=== PATIENT | male | born 1970 | race Hispanic/Latino ===

== ENCOUNTER 2016-10-06 08:30 | Outpatient (CLI) | payer BC ==
[2016-10-06] MEDS ORDERED: PROVENTIL IH ONE (09:14)
--- NOTE | 2016-10-06 09:39 | XRay Report ---
CHEST 2 VIEWS INDICATION: Cough, bronchospasm. COMPARISON: None similar at this institution. FINDINGS: PA and lateral chest radiographs demonstrate extensive diffuse bilateral pulmonary infiltrates, least involving the right upper lung zone. Normal cardiomediastinal silhouette. No pleural effusions or CHF. Intact bones. CONCLUSION: Extensive bilateral pulmonary infiltrates, presumed chronic, as described. Please also correlate clinically and with prior chest imaging, if available. Thank you for the opportunity to participate in this patient's care.
--- NOTE | 2016-10-07 02:37 | Pulmonary Function Test ---
FVC of 5.79 L or 87% of predicted. FEV1 of 4.32 L or 83% of predicted with a ratio of 75%. F25/75 was 3.36 L per second or 74% of predicted. MVV was 2.08 liters per minute or 111% of predicted. LUNG VOLUMES: Total lung capacity was 9.22 L or 107% of predicted. Residual volume was 3.57 liters or 157% of predicted with full vital capacity of 85%. DLCO 32.66 mL per minute per mmHg or 75% of predicted, RAW of 46%. INTERPRETATION: The patient has evidence of mild obstructive ventilatory defect and there is evidence of air trapping, mild hyperinflation and not significant loss of function alveolar unit. Clinical correlation is suggested. JOB# [id number] VICENTA/RITU
== END 2016-10-06 08:31 | disposition home or self-care (01) ==
LOC: PF 08:30
PROVIDERS: ATTEND Internal Medicine
DX: J98.01 Acute bronchospasm (principal); R91.8 Other nonspecific abnormal finding of lung field
CPT/HCPCS: 71020; 94010; 94726; 94729

== ENCOUNTER 2016-10-07 08:27 | Inpatient (IN) | payer BC ==
--- NOTE | 2016-10-07 09:25 | Emergency Department Report ---
HPI - General Chief Complaint: Dyspnea/Respdistress Time Seen by Provider: 10/07/16 08:44 - HPI HPI: This is a 46-year-old male presents to the emergency department, sent in by his primary care physician Dr. Hanson, secondary to an abnormal chest x- ray that was done yesterday. The patient has been having a 4 month history of intermittent bronchitis-like symptoms with mixed dry and productive cough. He is tried breathing treatments, steroids but has never been on any antibiotics. Recently he has been doing some pulmonary function testing and pulmonary exercises and that seems to exacerbate his chest discomfort causing some inflammation or as the patient says "makes my chest feels like it's on fire." He was finally sent for a chest x-ray yesterday and the results got back to his PCP that showed extensive infiltrates concerning in the upper lobes. The patient denies any past medical history but also with about 20 years without seeing a regular physician. He denies any recent travel or sick contacts at home. He denies any known fevers. He denies tobacco or illicit drug use or abuse. ED Past Medical Hx - Past Medical History Previous Medical History?: No - Surgical History Past Surgical History?: No - Social History Smoking Status: Never Smoker Substance Use Type: None - Medications Home Medications: Home Medications Medication Instructions Recorded Confirmed Last Taken Type Bnrxy-Hipbrqz-Ynilqerp Tablet 1 tab PO DAILY 10/07/16 10/07/16 10/06/16 History ED Review of Systems ROS: Stated complaint: SOB/RETURN CALL Other details as noted in HPI Comment: All other systems reviewed and negative Constitutional: chills. denies: weakness Eyes: denies: eye pain, eye discharge, vision change ENT: denies: ear pain, throat pain Respiratory: cough, shortness of breath Cardiovascular: denies: palpitations, edema Gastrointestinal: denies: abdominal pain, nausea, diarrhea Genitourinary: denies: urgency, dysuria Musculoskeletal: denies: back pain, joint swelling, arthralgia Skin: denies: rash, lesions Neurological: denies: headache, weakness, paresthesias Physical Exam - Physical Exam Vital Signs: Vital Signs 10/07/16 10/07/16 10/07/16 08:31 08:43 08:45 Temperature 97.4 F L Pulse Rate 77 Respiratory 18 Rate Blood Pressure 138/98 138/81 O2 Sat by Pulse 96 98 97 Oximetry 08/22/17 08/22/17 08:59 09:00 Temperature Pulse Rate 67 Respiratory 14 11 L Rate Blood Pressure 130/87 O2 Sat by Pulse 96 97 Oximetry Physical Exam: GENERAL: The patient is well-developed well-nourished. HENT: Normocephalic. Atraumatic. Patient has moist mucous membranes. EYES: Extraocular motions are intact. Pupils equal reactive to light bilaterally. NECK: Supple. Trachea is midline. CHEST/LUNGS: There was a dry cough heard during examination. Mild rhonchi heard. No tachypnea or accessory muscle use. There is no respiratory distress noted. HEART/CARDIOVASCULAR: Regular. There is no tachycardia. There is no gallop rub or murmur. ABDOMEN: Abdomen is soft, nontender. Patient has normal bowel sounds. There is no abdominal distention. SKIN: Skin is warm and dry. NEURO: The patient is awake, alert, and oriented. The patient is cooperative. The patient has no focal neurologic deficits. The patient has normal speech. MUSCULOSKELETAL: There is no tenderness or deformity. There is no limitation range of motion. There is no evidence of acute injury. ED Course Vital Signs 10/07/16 10/07/16 10/07/16 08:31 08:43 08:45 Temperature 97.4 F L Pulse Rate 77 Respiratory 18 Rate Blood Pressure 138/98 138/81 O2 Sat by Pulse 96 98 97 Oximetry 10/07/16 10/07/16 08:59 09:00 Temperature Pulse Rate 67 Respiratory 14 11 L Rate Blood Pressure 130/87 O2 Sat by Pulse 96 97 Oximetry ED Medical Decision Making - Lab Data Result diagrams: 10/07/16 09:39 10/07/16 09:39 - Radiology Data Radiology results: report reviewed CT of the chest with IV contrast. History: Cough and dyspnea. Findings: There is an irregular soft tissue mass lesion in the left upper lobe anteriorly measuring 2 cm in diameter. This is contiguous with anterior bulky mediastinal adenopathy. Markedly enlarged nodes are seen in the pretracheal and precarinal region, the AP window, and subcarinal region. Extensive bilateral coarse interstitial infiltrates are present with coalescence of many of the interstitial densities. Small additional pulmonary masses cannot be excluded. There is bilateral hilar adenopathy. There is no pleural fluid. Images which include a portion of the upper abdomen demonstrate numerous ill-defined hypodensities throughout the spleen. There also diffuse innumerable hypodensities within the liver. The liver and spleen are incompletely evaluated on this study of the chest. Impression: Left upper lobe mass with bulky mediastinal and hilar adenopathy, highly suspicious for neoplastic process. There is coexistent extensive bilateral interstitial fibrosis/infiltrates with possible additional pulmonary nodules. 2. Multiple splenic hypodensities are suspicious for metastatic disease. Multiple small hepatic hypodensities are also somewhat suspicious. CT of the abdomen and pelvis is recommended for further evaluation. - Medical Decision Making 46-year-old male presents with a 4 month history of persistent cough and some pleuritic chest and/or long burning sensation for the past day or so. He had an abnormal chest x-ray yesterday which is what prompted him to be sent in. Labs are mostly unremarkable. However CT of the chest with IV contrast shows concern for neoplastic lung mass with possible metastasis to the liver. It was also describes having some interstitial infiltrates. He was placed on a dose of Levaquin and blood cultures were sent. He will be admitted to the hospital for further evaluation and treatment has been accepted for admission by the hospitalist, Dr. Goldberg. - Differential Diagnosis malignancy, TB, bronchitis, pneumonia Critical Care Time: No Critical care attestation.: If time is entered above; I have spent that time in minutes in the direct care of this critically ill patient, excluding procedure time. ED Disposition Clinical Impression: Burning chest pain, Lung mass, Bronchitis Disposition: OP ADMIT IP TO THIS HOSP Is pt being admited?: Yes Condition: Stable Time of Disposition: 13:47
[2016-10-07 10:09] LABS: Basophils % (Auto) 1.1 % (0.0-1.8); Hematocrit 37.2 % (35.5-45.6); Hemoglobin 12.7 gm/dl (11.8-15.2); Mean Corpuscular HGB Conc 34 % (32-34); Mean Corpuscular Hemoglobin 28 pg (28-32); Mean Corpuscular Volume 83 fl (84-94); Platelet Count 168 K/mm3 (140-440); Red Cell Distribution Width 14.4 % (13.2-15.2); White Blood Count 6.5 K/mm3 (4.5-11.0)
[2016-10-07 10:17] LABS: BUN/Creatinine Ratio 12.14; Chloride 104.6 mmol/L (98-107); Potassium 3.4 mmol/L (3.6-5.0)
--- NOTE | 2016-10-07 11:34 | Cat Scan Report ---
CT of the chest with IV contrast. History: Cough and dyspnea. Findings: There is an irregular soft tissue mass lesion in the left upper lobe anteriorly measuring 2 cm in diameter. This is contiguous with anterior bulky mediastinal adenopathy. Markedly enlarged nodes are seen in the pretracheal and precarinal region, the AP window, and subcarinal region. Extensive bilateral coarse interstitial infiltrates are present with coalescence of many of the interstitial densities. Small additional pulmonary masses cannot be excluded. There is bilateral hilar adenopathy. There is no pleural fluid. Images which include a portion of the upper abdomen demonstrate numerous ill-defined hypodensities throughout the spleen. There also diffuse innumerable hypodensities within the liver. The liver and spleen are incompletely evaluated on this study of the chest. Impression: Left upper lobe mass with bulky mediastinal and hilar adenopathy, highly suspicious for neoplastic process. There is coexistent extensive bilateral interstitial fibrosis/infiltrates with possible additional pulmonary nodules. 2. Multiple splenic hypodensities are suspicious for metastatic disease. Multiple small hepatic hypodensities are also somewhat suspicious. CT of the abdomen and pelvis is recommended for further evaluation.
--- NOTE | 2016-10-07 12:28 | Admit Criteria Form ---
Admission Criteria Documentation: PULMONARY DISEASE GRG Clinical Indications for Admission to Inpatient Care ( Place 'X' for any and all applicable criteria): Hospital admission is needed for appropriate care of the patient because of 1 or more of the following(1)(2): [ ]I. Impending or actual respiratory arrest. See Respiratory Failure GRG guideline for severe respiratory disease and long-term mechanical ventilation patients. (3)(4) (5) [ ]II. Severe airflow or ventilation abnormalities (not responsive to emergency and observation care treatment as appropriate) as indicated by 1 or more of the following (6)(7)(8)(9) : [ ]a) PCO2 greater than 42 mm Hg (5.6 kPa) and pH less than 7.35 (new) [ ]b) Documented PCO2 increased more than 5 mm Hg (0.7 kPa) from disease baseline [ ]c) Airflow measurements[A] less than 60% of previous best or predicted (eg, peak expiratory flow rate less than 300 L/min) despite intensive emergent treatment(B) [ ]d) Required respiratory treatments that are performable only in acute inpatient setting [ ]III. Severe respiratory findings (not responsive to emergency and observation care treatment as appropriate) including 1 or more of the following(6)(9)(10): [ ]a) Respiratory distress as indicated by ALL of the following(6)(11): [ ]i) Patient with 1 or more of the following: [ ]1) Dyspnea (difficulty breathing) [ ]2) Tachypnea [ ]3) Abnormal breathing pattern (eg, chest retractions) [ ]4) Other evidence of difficulty breathing [ ]ii) Evidence of respiratory compromise indicated by 1 or more of the following: [ ]1) Hypoxemia [ ]2) Altered mental status [ ]3) Other evidence of respiratory compromise (eg, pulmonary edema on chest x-ray) [ ]b) Stridor [ ]c) Gross hemoptysis(12) [ ]d) Acute cyanosis [ ]IV. Chronic lung disease with severe deterioration (not responsive to emergency and observation care treatment as appropriate) as indicated by 1 or more of the following(7) (13): [ ]a) SaO2 5% below baseline in patient with chronic hypoxemia [ ]b) New requirement for supplemental oxygen to keep SaO2 at baseline or acceptable level [ ]c) Required supplemental oxygen performable only in acute inpatient setting [ ]d) Severe airflow or ventilation abnormalities [ ]e) Previouslymobile patient unable to walk between rooms [ ]f) Inability to eat or sleep due to dyspnea [ ]g) Altered mental status that is severe or persistent [ ]V. Empyema or lung abscess(14)(15) [ ]Vl. Severe atelectasis or lung collapse(16)(17) [ ]Kathya. Tuberculosis requiring inpatient treatment as indicated by 1 or more of the following(18)(19)(20)(21): [ ]a) Diagnosis suspected (eg, symptomatic patient from endemic area or in high-risk population, with abnormal chest imaging) and cannot be ruled out within observation care timeframe (ie, sputum analysis, nucleic acid amplification techniques not rapidly available or not diagnostic) [ ]b) Severely symptomatic patient (eg, Hypoxemia, Hemodynamic instability, Tachypnea) [ ]c) Jtmxp-gyyz-vgxmemntr infection suspected in newly diagnosed patient (eg, treatment regimen may require near-term adjustment) [ ]d) Newly diagnosed patient at high-risk of short-term deterioration (eg, HIV positive, frail, immunocompromised, chronic lung disease) [ ]e) High infectivity suspected (eg, laryngeal disease, cavitary pulmonary lesions, ongoing positivity of sputum) and 1 or more of the following: [ ]i) Unexposed household contacts at high risk (eg, immunocompromised, elderly, infants, chronic lung disease) [ ]ii) Patient unable or unwilling to avoid exposing others (eg, significant psychiatric disease, substance abuse, developmental disability) [ ]f) Complication of tuberculosis requiring inpatient treatment (eg , constrictive pericarditis, tubercular meningitis) [ ]g) Hospitalization mandated by public health authority (eg, patient continually noncompliant with directly observed therapy) [ ]VIII. High-risk pulmonary infection as indicated by 1 or more of the following(22)(23)(24)(25): [ ]a) Temperature less than 95 degrees F (35 degrees C) or greater than 103.1 degrees F (39.5 degrees C) [ ]b) Hemodynamic instability [ ]c) Immunocompromised patient (eg, AIDS, post transplant, neutropenic)(26)(27) [ ]d) History of severe COPD(28) [ ]e) History of severely symptomatic congestive heart failure(29) [ ]f) Other high-risk comorbidity (eg, poorly controlled diabetes, cirrhosis, chronic renal insufficiency) [ ]g) Hypoxemia [ ]h) severe stridor (30) [ ]i) Outpatient, observation, or recovery facility therapy has failed, is not appropriate, or is not feasible. [ ]IX. Complications of tracheostomy that remains after emergency or observation level care(31)(32)(33)(34) [ ]X. Respiratory complications of organ transplant (eg, rejection, respiratory failure, respiratory infection)(27) [ ]XI. Severe pulmonary arterial hypertension or pulmonary vascular disease requiring inpatient care indicated by 1 or more of the following(35)(36)(37)(38): [ ]a) Initiation or change of vasodilators (IV, subcutaneous, or inhaled) or other vasoactive medications needed [ ]b) IV anticoagulation needed (eg, immediate anticoagulation necessary, alternatives not appropriate) [ ]c) Arterial or pulmonary artery catheter monitoring needed due to infusion or other treatment [ ]XII. Cystic fibrosis requiring inpatient care as indicated by 1 or more of the following(39)(40): [ ]a) Severe exacerbation that does not respond to intensified home therapy(41) [ ]b) Severe exacerbation with patient unable to perform prescribed treatments at home [ ]c) Pneumonia [ ]d) Pneumothorax(42) [ ]e) Atelectasis [ ]f) Hemoptysis(43) [ ]XIII. Bronchiectasis requiring inpatient care as indicated by 1 or more of the following(44)(45): [ ]a) Respiratory distress [ ]b) Severe exacerbation and outpatient or observation care therapy has failed, is not appropriate, or is not feasible. [ ]XIV. Sarcoidosis requiring inpatient care as indicated by 1 or more of the following(46)(47)(48): [ ]a) Respiratory distress [ ]b) Cardiac involvement with arrhythmia(49) [ ]c) Outpatient or observation care therapy has failed, is not appropriate, or is not feasible. [ ]XV. Intestitial lung disease requiring inpatient care as indicated by 1 or more of the following(50)(51): [ ]a) Respiratory distress [ ]b) Severe exacerbation and outpatient or observation care therapy has failed, is not appropriate, or is not feasible [ ]XVI. Allergic pneumonitis requiring inpatient care as indicated by 1 or more of the following(52): [ ]a) Respiratory distress [ ]b) Acute eosinophilic pneumonia [ ]c) [place] with cardiac involvement [ ]d) Outpatient or observation care therapy has failed, is not appropriate, or is not feasible [ ]XVIl. Severe right heart failure requiring inpatient care as indicated by 1 or more of the following(35)(53)(54): [ ]a) Respiratory distress [ ]b) Debilitating anasarca that remains after emergency or observation level care (eg, tissue [ ]c) breakdown with severe infection, inability to void due to edema) [C](41)(42)(43)(44) [ ]d) Hemodynamic instability [ ]e) Syncope [ ]f) Angina that requires inpatient care (eg, not treatable in emergency or observation level of care) [ ]g) Increasing organ failure (eg, liver congestion with significant and worsening or new elevation of transaminases) [ ]XVIll. Injury requiring inpatient care (medical) as indicated by 1 or more of the following(59)(60)(61) [ ]a) Significant inhalation injury (eg, smoke inhalation, other toxic inhalation)(62)(63)(64) [ ]b) Airway obstruction that remains or is unstable after emergency or observation level care(65)(66) [ ]c) Severe pain requiring acute inpatient management [ ]d) Lung contusion(67) [ ]e) Flail chest(68) [ ]f) Bronchial tree injury [ ]g) Air or fat emboli [ ]h) Other injury not treatable in emergency or observation level care (eg, hemothorax)(55) [ ]XlX. Pulmonary hemorrhage or significant hemoptysis(12)(43)(69) [ ]XXl. Complications of transplanted lung indicated by 1 or more of the following(70)(71) [ ]a) Acute graft rejection requiring inpatient management (eg, intravenous immunosuppression)(72)(73)(74) [ ]b) Failure of transplant lung as indicated by 1 or more of the following(75)(76): [ ]i) Anastomotic leak [ ]ii) Airway ischemia or necrosis [ ]iii) Airway fistula [ ]iv) Obstructing granulation tissue requiring intervention [ ]v) Bronchial stenosis or stricture requiring intervention [ ]vi) Tracheobronchomalacia requiring intervention [ ]vii) Severe airflow or ventilation abnormalities [ ]viii) Severe respiratory findings [ ]c) Infection requiring inpatient management (eg, Hemodynamic instability, need for intravenous antimicrobial treatment)(77)(78)(79)(80)(81)(82 [ ]d) Other complication of transplanted lung (eg, obliterative bronchiolitis, plastic bronchitis, thrombotic microangiopathy, constrictive pericarditis) requiring inpatient management(83)(84)(85)(86)(87) [ ]XXll. Inpatient palliative care needed.[D](88)(89)(90)(91) [X ]XXlll. Pulmonary Disease condition, symptom, or finding for which emergency and observation care have failed or are not considered appropriate. The original [facility] [employer] content created by [employer] has been revised. The portions of the content which have been revised are identified through the use of italic text or in bold, and [facility] has neither reviewed nor approved the modified material. All other unmodified content is copyright [facility] [employer] Please see references footnoted in the original [facility] [employer] edition 2017 Admission Criteria Met: Yes
[2016-10-07] MEDS ORDERED: LEVAQUIN 750MG/150ML 750 MG/150 ML BAG IV ONE (13:40)
[2016-10-07] MEDS: HEPARIN SUB-Q SCH ×2 (15:19→21:23)
[2016-10-08] MEDS: HEPARIN SUB-Q SCH ×3 (05:23→21:44)
--- NOTE | 2016-10-08 06:09 | Event Note ---
Date: 10/07/16 See H/p in reports Lung Ca with mets Malnutrition Lactose intolerance
[2016-10-08] MEDS ORDERED: ZOFRAN IV PRN (07:07)
[2016-10-08] MEDS ORDERED: DULCOLAX PR PRN (07:07)
[2016-10-08] MEDS ORDERED: TYLENOL PO PRN (07:07)
[2016-10-08 07:56] LABS: INR 1.1 (0.87-1.13); Partial Thromboplastin Time 37.1 Sec. (24.2-36.6)
--- NOTE | 2016-10-08 08:29 | History and Physical Report ---
CHIEF COMPLAINT: Cough and chest pain for 1 week. HISTORY OF PRESENT ILLNESS: A 46-year-old male with past medical history significant for lactulose intolerance, who has never seen a physician until last 1 week, comes in because of chest x-ray abnormalities and was referred by his primary care physician, Dr. Gloria. The patient has been having dry cough, nonproductive. Has tried inhalers with no relief. The patient has been some chest discomfort, but more on deep breathing and also coughing. The patient also has lost some weight recently. As per his primary care physician, the patient had extensive infiltrates on the chest x-ray for which he was referred to the ER for further evaluation. Did not see his PCP for the last 20 years. PAST MEDICAL HISTORY: Significant for lactulose intolerance. PAST SURGICAL HISTORY: None. SOCIAL HISTORY: Does not smoke. No alcohol, no recreational drugs. FAMILY HISTORY: Noncontributory. REVIEW OF SYSTEMS: GENERAL: Lost some weight recently. HEENT: No sore throat, no postnasal drip. NECK: No neck pain. CARDIOVASCULAR AND RESPIRATORY: Cough, shortness of breath present. Cough, nonproductive. Occasionally, mucoid sputum. Pleuritic chest pain present, more on breathing. GASTROINTESTINAL: No nausea, no vomiting, no diarrhea. Gets loose stools with lactulose products. GENITOURINARY: No dysuria, no flank pain. MUSCULOSKELETAL: No joint pains. No muscle pains. SKIN: No rashes. NEUROLOGIC: No syncope, no seizures. A 14-point review of systems was done. PHYSICAL EXAMINATION: GENERAL: On examination, middle-aged male, underweight, tall. VITAL SIGNS: Temperature is 97.4, pulse is 77, respirations are 18, blood pressure is 138/98. HEENT: Unremarkable. Pupils equal and reactive. NECK: Supple, no lymphadenopathy, no thyromegaly. LUNGS: Clear to auscultation and percussion. Occasional rhonchi present. CARDIOVASCULAR: S1, S2 heard. No gallop, no murmur, no rub. Apical impulse in left fifth intercostal space and midclavicular line. ABDOMEN: Soft and benign. No hepatosplenomegaly. No guarding, no rigidity. Hernial orifices are normal. EXTREMITIES: Good pedal pulses. No pedal edema. CENTRAL NERVOUS SYSTEM: Alert and oriented x 4, nonfocal exam. LABORATORY DATA: Significant for potassium of 3.4, otherwise labs are normal. Hemoglobin is 12.7, hematocrit is 37.2. Sodium is 144. CT of the chest shows multiple infiltrates especially mass lesion in the left upper lobe, measuring about 2 cm in diameter. Also, bulky mediastinal adenopathy, markedly enlarged nodes in the precarinal region. Extensive bilateral coarse interstitial infiltrates. Also, hypodensities suspicious for multiple metastatic disease in the liver and spleen. CT of the abdomen and pelvis recommended. ASSESSMENT AND PLAN: 1. Lung cancer with metastasis. Oncology consult was requested. The patient needs a tissue biopsy. Dr. Ham consulted. 2. Acute bronchitis. The patient to get DuoNeb and IV Levaquin. 3. Lactose intolerance. Lactose-free diet. 4. Malnutrition. HIV test was ordered to rule out possible HIV disease because of weight loss. 5. Deep venous thrombosis prophylaxis, Lovenox 40 mg subcutaneous daily. JOB# [id number] LUCY/RITU
[2016-10-08] MEDS: D5W/0.45% NACL/KCL 20 MEQ 20 MEQ/1,000 ML BAG IV SCH (08:30)
[2016-10-08 08:31] LABS: HIV-1 Antigen p24 Non React (Non React); HIVR-1/2 Ab Non React (Non React)
[2016-10-08] MEDS ORDERED: [UNRECOGNIZED DRUG - OTHER] PO SCH (10:00)
[2016-10-08] MEDS ORDERED: NACL ONE (12:45)
--- NOTE | 2016-10-08 13:44 | Hem/Onc Consultation ---
History of Present Illness - Reason for Consult Consult date: 10/08/16 Requesting physician: ANT SANCHEZ - History of Present Illness Young gentleman, runner developed cough around 6 months ago. Treated with broncho dilators and antibiotics but worsened. He had a CT done as outlined below and we are called. Symptoms are cough and dyspnea. Able to run one block only. Medications and Allergies Allergies Allergy/AdvReac Type Severity Reaction Status Date / Time cefaclor [From [facility]] Allergy Itching Unverified 10/06/16 08:31 Home Medications Medication Instructions Recorded Confirmed Last Taken Type Dfiwt-Goxvtew-Zqhfigag Tablet 1 tab PO DAILY 10/07/16 10/07/16 10/06/16 History Active Meds: Active Medications Acetaminophen (Tylenol) 650 mg PO Q4H PRN PRN Reason: Pain MILD(1-3)/Fever >100.5/CASTELLANOS Bisacodyl (Dulcolax) 10 mg CA QDAY PRN PRN Reason: Constipation unrelieved by [facility] Famotidine (Pepcid) 20 mg IV BID REAGAN Heparin Sodium (Porcine) (Heparin) 5,000 unit SUB-Q Q8HR REAGAN Last Admin: 10/08/16 05:23 Dose: 5,000 unit Hydromorphone HCl (Dilaudid) 0.5 mg IV Q3H PRN PRN Reason: Pain , Severe (7-10) Potassium Chloride/Dextrose/Sod Cl (D5w/0.45% Nacl/Kcl 20 Meq) 20 meq in 1,000 mls @ 75 mls/hr IV DIRECT REAGAN Last Admin: 10/08/16 08:30 Dose: 75 mls/hr Magnesium Hydroxide (Milk Of Magnesia) 30 ml PO Q4H PRN PRN Reason: Constipation Multivitamins/Minerals (Theragran-M Tab) 1 each PO QDAY REAGAN Ondansetron HCl (Zofran) 4 mg IV Q8H PRN PRN Reason: N/V unrelieved by Reglan Oxycodone/Acetaminophen (Percocet 5/325) 1 tab PO Q6H PRN PRN Reason: Pain, Moderate (4-6) Review of Systems All systems: negative (dyspnea and cough) Exam - Constitutional Vitals: Last Vital Signs Temp 98.6 F 10/08/16 07:35 Pulse 66 10/08/16 08:44 Resp 18 08/23/17 08:44 BP 122/79 10/08/16 07:35 Pulse Ox 100 10/08/16 07:35 General appearance: no acute distress Performance status: 0-fully active - EENT Eyes: PERRL ENT: hearing intact, clear oral mucosa Lymph node exam: negative cervical - Neck Neck: supple - Respiratory Respiratory effort: Positive: normal Respiratory: bilateral: CTA - Cardiovascular Rhythm: regular Extremities: no ischemia - Gastrointestinal General gastrointestinal: Present: soft Rectal Exam: deferred - Genitourinary Male genitourinary: Present: normal - Integumentary Integumentary: clear - Musculoskeletal Musculoskeletal: strength equal bilaterally - Neurologic Neurologic: CNII-XII intact - Psychiatric Psychiatric: appropriate mood/affect - Allied health notes Allied health notes reviewed: nursing Results - Labs lab Results: Laboratory Results - last 24 hr 10/08/16 10/08/16 07:21 07:27 PT 14.8 INR 1.10 APTT 37.1 H HIV 1&2 Antibody Rapid Non react HIV P24 Antigen Non react - Imaging and cardiology CT scan - chest: report reviewed, image reviewed Assessment and Plan - Patient Problems (1) Lung mass Current Visit: Yes Status: Acute Plan to address problem: Scan reviewed personally reviewed and with Dr Gonzales. Also showed scans to parents. Plan is biopsy. Outpatient follow up recommended. 45v minutes spent in patient care.
[2016-10-08] MEDS: PEPCID IV SCH ×2 (13:58→21:50)
[2016-10-08] MEDS: THERAGRAN-M Tab PO SCH (13:58)
--- NOTE | 2016-10-08 14:56 | Cat Scan Report ---
CT ABDOMEN AND PELVIS WITH CONTRAST INDICATION: Evaluate for liver metastases. COMPARISON: Yesterday's chest CT. FINDINGS: Abdomen and pelvis CT performed following oral contrast and intravenous administration of 100 cc of Omnipaque 300. LUNG BASES: Diffuse bibasilar reticulonodular pulmonary infiltrates, at places somewhat coalescent. No pleural effusions. Anterior 6 mm AP pericardial thickening or fluid, axial image 38, series 2. Normal heart size. Nonspecific distal esophageal wall prominence/thickening, not excluded for gastroesophageal reflux and/or hiatal hernia, amongst others. ABDOMEN: Innumerable splenic hypodense lesions noted throughout with the largest confluent area superiorly measuring approximately 11 x 7 cm, axial image 61, series 2. Spleen enlarged 18.5 cm craniocaudal. Liver estimated at 19 cm craniocaudal and is suspicious for innumerable tiny hypodense lesions individually measuring 3-4 mm and greatest superiorly as on axial images 37-85, series 2, amongst others. No biliary dilatation. Patent veins. Pancreatic body somewhat prominent/blunted with tail not well seen, possibly displaced due to the enlarged spleen. Otherwise unremarkable pancreas, adrenals, aorta, IVC and non-hydronephrotic kidneys. Left renal cortical flattening anterolaterally related to splenomegaly may also be noted. Numerous retroperitoneal, robyn hepatis and gastrohepatic lymph nodes with the largest confluent left para-aortic lymphadenopathy approximately 2.5 x 1.5 cm, axial image 168, series 2. No ascites. Opacified small bowel nonobstructive. Mild to moderate colonic stool/possible constipation. PELVIS: Small prostatic calcifications. Few pelvic phleboliths. Rectosigmoid stool. Grossly unremarkable opacified urinary bladder. No free fluid or significant adenopathy. Mild lower thoracic and lower lumbar degenerative spurring. CONCLUSION: 1. Splenomegaly with innumerable hypodense lesions. 2. Prominent/slightly enlarged liver with tiny numerous hypodense lesions superiorly also suspected. 3. Upper abdominal mesenteric and retroperitoneal lymphadenopathy. 4. Bilateral nodular pulmonary infiltrates. 5. Few other incidental findings, including possible constipation. Differential considerations in light of above findings may include lymphoma, sarcoidosis or metastatic disease, amongst others. Thank you for the opportunity to participate in this patient's care.
--- NOTE | 2016-10-08 19:39 | Progress Note ---
Assessment and Plan Assessment and plan: 46 yo male with no medical problems developed persistent cough approximately 4 months ago and later associated fatigue/generalized weakness 1. Suspected metastatic malignancy with lung primary CT chest showing DASH mass with mediastinal and hilar adenopathy and CT abdomen/ pelvis showing numerous small hypodensities in spleen and liver Scheduled for lung biopsy by IR Oncology consulted and recommended outpatient follow-up after biopsy performed 2. Hypercalcemia Secondary to dehydration versus paraneoplastic syndrome Give IV fluids and recheck in a.m. Also obtain total protein, AP, LFTs 3. Acute kidney injury Possible secondary to vasomotor nephropathy Give IV fluids Monitor BUN/creatinine and electrolytes 4. DVT prophylaxis Lovenox indicated given malignancy, but currently on heparin subcutaneous until renal function recovers History Interval history: Complains of fatigue and dry cough Hospitalist Physical - Constitutional Vitals: Temp Pulse Resp BP Pulse Ox 98.2 F 65 16 131/77 95 10/08/16 14:35 10/08/16 14:35 10/08/16 14:35 10/08/16 14:35 10/08/16 14:35 General appearance: Present: no acute distress - EENT Eyes: Present: PERRL, EOM intact. Absent: scleral icterus, conjunctival injection - Neck Neck: Present: supple, normal ROM. Absent: masses or JVD - Respiratory Respiratory effort: normal Respiratory: bilateral: CTA, negative: rhonchi, wheezing - Cardiovascular Rhythm: regular Heart Sounds: Present: S1 & S2. Absent: systolic murmur - Extremities Extremities: no ischemia, No edema - Abdominal General gastrointestinal: soft, non-tender, non-distended, normal bowel sounds, splenomegaly - Integumentary Integumentary: Present: warm, dry. Absent: jaundice, rash - Psychiatric Psychiatric: appropriate mood/affect, intact judgment & insight, cooperative - Neurologic Neurologic: CNII-XII intact, no focal deficits Results - Labs CBC & Chem 7: 10/07/16 09:39 10/07/16 09:39 Labs: Laboratory Last Values WBC 6.5 K/mm3 (4.5-11.0) 10/07/16 09:39 RBC 4.50 M/mm3 (3.65-5.03) 10/07/16 09:39 Hgb 12.7 gm/dl (11.8-15.2) 10/07/16 09:39 Hct 37.2 % (35.5-45.6) 10/07/16 09:39 MCV 83 fl (84-94) L 10/07/16 09:39 MCH 28 pg (28-32) 10/07/16 09:39 MCHC 34 % (32-34) 10/07/16 09:39 RDW 14.4 % (13.2-15.2) 10/07/16 09:39 Plt Count 168 K/mm3 (140-440) 10/07/16 09:39 Lymph % (Auto) 14.1 % (13.4-35.0) 10/07/16 09:39 [place] % (Auto) 15.6 % (0.0-7.3) H 10/07/16 09:39 Eos % (Auto) 6.0 % (0.0-4.3) H 10/07/16 09:39 Baso % (Auto) 1.1 % (0.0-1.8) 10/07/16 09:39 Lymph # 0.9 K/mm3 (1.2-5.4) L 10/07/16 09:39 [place] # 1.0 K/mm3 (0.0-0.8) H 10/07/16 09:39 Eos # 0.4 K/mm3 (0.0-0.4) 10/07/16 09:39 Baso # 0.1 K/mm3 (0.0-0.1) 10/07/16 09:39 Seg Neutrophils % 63.2 % (40.0-70.0) 10/07/16 09:39 Seg Neutrophils # 4.1 K/mm3 (1.8-7.7) 10/07/16 09:39 PT 14.8 Sec. (12.2-14.9) 10/08/16 07:27 INR 1.10 (0.87-1.13) 10/08/16 07:27 APTT 37.1 Sec. (24.2-36.6) H 10/08/16 07:27 Sodium 144 mmol/L (137-145) 10/07/16 09:39 Potassium 3.4 mmol/L (3.6-5.0) L 10/07/16 09:39 Chloride 104.6 mmol/L (98-107) 10/07/16 09:39 Carbon Dioxide 26 mmol/L (22-30) 10/07/16 09:39 Anion Gap 17 mmol/L 10/07/16 09:39 BUN 17 mg/dL (9-20) 10/07/16 09:39 Creatinine 1.4 mg/dL (0.8-1.5) 10/07/16 09:39 Estimated GFR 55 ml/min 10/07/16 09:39 BUN/Creatinine Ratio 12.14 % 10/07/16 09:39 Glucose 97 mg/dL (75-100) 10/07/16 09:39 Lactic Acid 1.60 mmol/L (0.7-2.0) 10/07/16 09:39 Calcium 12.0 mg/dL (8.4-10.2) H 10/07/16 09:39 HIV 1&2 Antibody Rapid Non react (Non React) 10/08/16 07:21 HIV P24 Antigen Non react (Non React) 10/08/16 07:21 - Imaging and Cardiology CT scan - abdomen: report reviewed CT scan - chest: report reviewed
[2016-10-09] MEDS: D5W/0.45% NACL/KCL 20 MEQ 20 MEQ/1,000 ML BAG IV SCH ×2 (02:25→20:35)
[2016-10-09 05:04] LABS: Hematocrit 37.8 % (35.5-45.6); Hemoglobin 12.6 gm/dl (11.8-15.2); Mean Corpuscular HGB Conc 34 % (32-34); Mean Corpuscular Hemoglobin 28 pg (28-32); Mean Corpuscular Volume 83 fl (84-94); Platelet Count 159 K/mm3 (140-440); Red Blood Count 4.55 M/mm3 (3.65-5.03); Red Cell Distribution Width 14.4 % (13.2-15.2); White Blood Count 4.1 K/mm3 (4.5-11.0)
[2016-10-09 05:07] LABS: Albumin/Globulin Ratio 1.4 %; BUN/Creatinine Ratio 11.53; Bilirubin,Total 0.5 mg/dL (0.1-1.2); Calcium 11.5 mg/dL (8.4-10.2); Chloride 104.4 mmol/L (98-107); Phosphorous 3.3 mg/dL (2.5-4.5); Potassium 4.9 mmol/L (3.6-5.0); Total Protein 6.8 g/dL (6.3-8.2)
[2016-10-09 05:13] LABS: INR 1.09 (0.87-1.13)
[2016-10-09 05:14] LABS: Partial Thromboplastin Time 32.9 Sec. (24.2-36.6)
[2016-10-09] MEDS: HEPARIN SUB-Q SCH ×3 (05:14→22:17)
[2016-10-09 06:46] LABS: Anisocytosis 1+; Basophils % (Manual) 0 % (0.0-1.8); Blastocytes % (Manual) 0 %; Large Platelets Few
[2016-10-09 06:47] LABS: Diff Status Complete; Hypochromasia Rare
[2016-10-09] MEDS ORDERED: VERSED IV ONE (09:34)
[2016-10-09] MEDS ORDERED: SUBLIMAZE IV ONE ×2 (09:34→16:54)
[2016-10-09] MEDS ORDERED: NACL 0.9% 500 ML 0 ML ONE (09:40)
[2016-10-09] MEDS: THERAGRAN-M Tab PO SCH (10:00)
--- NOTE | 2016-10-09 10:56 | Procedure Note ---
Date of procedure: 10/09/16 Pre-op diagnosis: Lung lesions Post-op diagnosis: same Procedure: Bx of DASH mass Anesthesia: local Surgeon: VIJAYA OSUNA Estimated blood loss: none Specimen disposition: to lab Condition: stable Disposition: floor
[2016-10-09] MEDS: PEPCID IV SCH ×2 (11:25→22:17)
--- NOTE | 2016-10-09 12:48 | Cat Scan Report ---
CT guided biopsy of left lung mass. Procedure: The patient's skin surface overlying the left thorax was prepped and draped using sterile technique. Local anesthetic was injected in the skin. Using CT guidance, a 19-gauge sheath needle was advanced into the mass in the left upper lobe anteriorly. 3 passes were made using a 20-gauge biopsy gun. Adequate tissue cores were obtained. No definite malignant cells were seen on the touch prep slides. Intravenous conscious sedation was used. And cardiorespiratory monitoring was performed by the outpatient procedure nurse was 30 minutes Intraservice time, supervised by me. The patient tolerated the procedure well. Post biopsy images demonstrated a small left pneumothorax. A followup chest x-ray was ordered for 2 hours after this procedure. The patient was sent to the floor as an inpatient in satisfactory condition.
--- NOTE | 2016-10-09 13:29 | XRay Report ---
AP excretory chest x-ray. History: Status post left chest biopsy. Findings: A left-sided pneumothorax estimated at 40% is present with slight shift of mediastinum from left to right. The diaphragm is not depressed. Extensive bilateral infiltrates persist. Impression: Left pneumothorax estimated at 35-40%. These findings were telephoned to the admitting physician at the time of the study.
--- NOTE | 2016-10-09 15:38 | Event Note ---
Date: 10/09/16 Procedure was performed by diagnostic radiology earlier today. Interventional radiology was contacted for assistance with placement of a chest tube at 3:40 pm. The hospitalist attempted to contact multiple other providers. IR was ultimately contacted. Will attempt to bring down for chest tube placement. Ultimate management of chest tube will be by other service, such as gen surg or pulmonology. If CT scanner unavailable, then other providers will need to place chest tube.
--- NOTE | 2016-10-09 15:54 | Progress Note ---
Assessment and Plan Assessment and plan: 46 yo male with no medical problems developed persistent cough approximately 4 months ago and later associated fatigue/generalized weakness 1. Suspected malignancy (metastatic malignancy with lung primary) vs granulomatous diseas (sarcoidosis) CT chest showing DASH mass with bilateral infiltrates and mediastinal and hilar adenopathy and CT abdomen/pelvis showing numerous small hypodensities in spleen and liver S/p CT-guided lung biopsy by IR - no malignant cell on slides There is associated hypercalcemia, but AP within normal limits Obtain ROSEMARIE 2. Left pneumothorax postbiopsy Placed on O2 100% rebreather mask Pulmonary/surgery/IR contacted for chest tube placement Procedure performed by IR, Dr. Temple Will readdress with pulmonary in a.m. for chest tube management 3. Hypercalcemia Secondary to dehydration versus paraneoplastic syndrome vs hypercalcemia and sarcoidosis; AP within normal limits Continue IV fluids for now and monitor 4. Acute kidney injury Possible secondary to vasomotor nephropathy Improving with IV fluids Continue to monitor 5. DVT prophylaxis Heparin subcutaneous; consider switching to Lovenox if renal function normalizes History Interval history: s/p CT-guided lung mass biopsy; PTX post procedure Hospitalist Physical - Constitutional Vitals: Temp Pulse Resp BP Pulse Ox 98.1 F 61 18 113/74 96 10/09/16 08:00 10/09/16 10:54 10/09/16 10:54 10/09/16 10:54 10/09/16 10:54 General appearance: Present: no acute distress - EENT Eyes: Present: PERRL, EOM intact. Absent: scleral icterus, conjunctival injection - Neck Neck: Present: supple, normal ROM. Absent: masses or JVD - Respiratory Respiratory effort: normal Respiratory: right: CTA, left: diminished, negative: rales, rhonchi, wheezing - Cardiovascular Rhythm: regular Heart Sounds: Present: S1 & S2. Absent: systolic murmur - Extremities Extremities: no ischemia, No edema - Abdominal General gastrointestinal: soft, non-tender, non-distended, normal bowel sounds - Integumentary Integumentary: Present: warm, dry. Absent: jaundice, rash - Psychiatric Psychiatric: appropriate mood/affect, intact judgment & insight, cooperative - Neurologic Neurologic: CNII-XII intact, no focal deficits Results - Labs CBC & Chem 7: 10/09/16 04:04 10/09/16 04:04 Labs: Laboratory Last Values WBC 4.1 K/mm3 (4.5-11.0) L 10/09/16 04:04 RBC 4.55 M/mm3 (3.65-5.03) 10/09/16 04:04 Hgb 12.6 gm/dl (11.8-15.2) 10/09/16 04:04 Hct 37.8 % (35.5-45.6) 10/09/16 04:04 MCV 83 fl (84-94) L 10/09/16 04:04 MCH 28 pg (28-32) 10/09/16 04:04 MCHC 34 % (32-34) 10/09/16 04:04 RDW 14.4 % (13.2-15.2) 10/09/16 04:04 Plt Count 159 K/mm3 (140-440) 10/09/16 04:04 Lymph % (Auto) 14.1 % (13.4-35.0) 10/07/16 09:39 [place] % (Auto) Cast[place]older 10/09/16 04:04 Eos % (Auto) 6.0 % (0.0-4.3) H 10/07/16 09:39 Baso % (Auto) 1.1 % (0.0-1.8) 10/07/16 09:39 Lymph # 0.9 K/mm3 (1.2-5.4) L 10/07/16 09:39 [place] # 1.0 K/mm3 (0.0-0.8) H 10/07/16 09:39 Eos # 0.4 K/mm3 (0.0-0.4) 10/07/16 09:39 Baso # 0.1 K/mm3 (0.0-0.1) 10/07/16 09:39 Add Manual Diff Complete 10/09/16 04:04 Total Counted 100 10/09/16 04:04 Seg Neutrophils % 63.2 % (40.0-70.0) 10/07/16 09:39 Seg Neuts % (Manual) 58.0 % (40.0-70.0) 10/09/16 04:04 Band Neutrophils % 5.0 % 10/09/16 04:04 Lymphocytes % (Manual) 13.0 % (13.4-35.0) L 10/09/16 04:04 Reactive Lymphs % (Man) 0 % 10/09/16 04:04 Monocytes % (Manual) 19.0 % (0.0-7.3) H 10/09/16 04:04 Eosinophils % (Manual) 5.0 % (0.0-4.3) H 10/09/16 04:04 Basophils % (Manual) 0 % (0.0-1.8) 10/09/16 04:04 Metamyelocytes % 0 % 10/09/16 04:04 Myelocytes % 0 % 10/09/16 04:04 Promyelocytes % 0 % 10/09/16 04:04 Blast Cells % 0 % 10/09/16 04:04 Nucleated RBC % Not Reportable 10/09/16 04:04 Seg Neutrophils # 4.1 K/mm3 (1.8-7.7) 10/07/16 09:39 Seg Neutrophils # Man 2.4 K/mm3 (1.8-7.7) 10/09/16 04:04 Band Neutrophils # 0.2 K/mm3 10/09/16 04:04 Lymphocytes # (Manual) 0.5 K/mm3 (1.2-5.4) L 10/09/16 04:04 Abs React Lymphs (Man) 0.0 K/mm3 10/09/16 04:04 Monocytes # (Manual) 0.8 K/mm3 (0.0-0.8) 10/09/16 04:04 Eosinophils # (Manual) 0.2 K/mm3 (0.0-0.4) 10/09/16 04:04 Basophils # (Manual) 0.0 K/mm3 (0.0-0.1) 10/09/16 04:04 Metamyelocytes # 0.0 K/mm3 10/09/16 04:04 Myelocytes # 0.0 K/mm3 10/09/16 04:04 Promyelocytes # 0.0 K/mm3 10/09/16 04:04 Blast Cells # 0.0 K/mm3 10/09/16 04:04 WBC Morphology Not Reportable 10/09/16 04:04 Hypersegmented Neuts Not Reportable 10/09/16 04:04 Hyposegmented Neuts Not Reportable 10/09/16 04:04 Hypogranular Neuts Not Reportable 10/09/16 04:04 Smudge Cells Not Reportable 10/09/16 04:04 Toxic Granulation Not Reportable 10/09/16 04:04 Toxic Vacuolation Not Reportable 10/09/16 04:04 Dohle Bodies Not Reportable 10/09/16 04:04 Pelger-Huet Anomaly Not Reportable 10/09/16 04:04 Davey Rods Not Reportable 10/09/16 04:04 Platelet Estimate Appears normal 10/09/16 04:04 Clumped Platelets Not Reportable 10/09/16 04:04 Plt Clumps, EDTA Not Reportable 10/09/16 04:04 Large Platelets Few 10/09/16 04:04 Giant Platelets Not Reportable 10/09/16 04:04 Platelet Satelliting Not Reportable 10/09/16 04:04 Plt Morphology Comment Not Reportable 10/09/16 04:04 RBC Morphology Not Reportable 10/09/16 04:04 Dimorphic RBCs Not Reportable 10/09/16 04:04 Polychromasia Not Reportable 10/09/16 04:04 Hypochromasia Rare 10/09/16 04:04 Poikilocytosis Not Reportable 10/09/16 04:04 Anisocytosis 1+ 10/09/16 04:04 Microcytosis Not Reportable 10/09/16 04:04 Macrocytosis Not Reportable 10/09/16 04:04 Spherocytes Not Reportable 10/09/16 04:04 Pappenheimer Bodies Not Reportable 10/09/16 04:04 Sickle Cells Not Reportable 10/09/16 04:04 Target Cells Not Reportable 10/09/16 04:04 Tear Drop Cells Not Reportable 10/09/16 04:04 Ovalocytes Not Reportable 10/09/16 04:04 Helmet Cells Not Reportable 10/09/16 04:04 [place] Bodies Not Reportable 10/09/16 04:04 [place] Rings Not Reportable 10/09/16 04:04 Prashant Cells Not Reportable 10/09/16 04:04 Bite Cells Not Reportable 10/09/16 04:04 Crenated Cell Not Reportable 10/09/16 04:04 Elliptocytes Not Reportable 10/09/16 04:04 Acanthocytes (Spur) Not Reportable 10/09/16 04:04 Rouleaux Not Reportable 10/09/16 04:04 Hemoglobin C Crystals Not Reportable 10/09/16 04:04 Schistocytes Not Reportable 10/09/16 04:04 Malaria parasites Not Reportable 10/09/16 04:04 [place] Bodies Not Reportable 10/09/16 04:04 Hem Pathologist Commnt No 10/09/16 04:04 PT 14.7 Sec. (12.2-14.9) 10/09/16 04:04 INR 1.09 (0.87-1.13) 10/09/16 04:04 APTT 32.9 Sec. (24.2-36.6) 10/09/16 04:04 Sodium 143 mmol/L (137-145) 10/09/16 04:04 Potassium 4.9 mmol/L (3.6-5.0) D 10/09/16 04:04 Chloride 104.4 mmol/L (98-107) 10/09/16 04:04 Carbon Dioxide 28 mmol/L (22-30) 10/09/16 04:04 Anion Gap 16 mmol/L 10/09/16 04:04 BUN 15 mg/dL (9-20) 10/09/16 04:04 Creatinine 1.3 mg/dL (0.8-1.5) 10/09/16 04:04 Estimated GFR 60 ml/min 10/09/16 04:04 BUN/Creatinine Ratio 11.53 % 10/09/16 04:04 Glucose 90 mg/dL (75-100) 10/09/16 04:04 Lactic Acid 1.60 mmol/L (0.7-2.0) 10/07/16 09:39 Calcium 11.5 mg/dL (8.4-10.2) H 10/09/16 04:04 Phosphorus 3.30 mg/dL (2.5-4.5) 10/09/16 04:04 Magnesium 2.00 mg/dL (1.7-2.3) 10/09/16 04:04 Total Bilirubin 0.50 mg/dL (0.1-1.2) 10/09/16 04:04 AST 17 units/L (5-40) 10/09/16 04:04 ALT 13 units/L (7-56) 10/09/16 04:04 Alkaline Phosphatase 69 units/L (35-129) 10/09/16 04:04 Total Protein 6.8 g/dL (6.3-8.2) 10/09/16 04:04 Albumin 4.0 g/dL (3.9-5) 10/09/16 04:04 Albumin/Globulin Ratio 1.4 % 10/09/16 04:04 HIV 1&2 Antibody Rapid Non react (Non React) 10/08/16 07:21 HIV P24 Antigen Non react (Non React) 10/08/16 07:21
[2016-10-09] MEDS ORDERED: VERSED ONE (16:24)
[2016-10-09] MEDS ORDERED: SUBLIMAZE ONE (16:25)
--- NOTE | 2016-10-09 16:57 | Post Operative Note ---
Date of procedure: 10/09/16 Pre-op diagnosis: Large left pneumothorax Post-op diagnosis: same Procedure: CT guided placement of a 10 Fr APD chest tube, pneumothorax completely evacuated Anesthesia: local (w/ conscious sedation) Surgeon: LUBA JEROME Estimated blood loss: minimal Condition: stable Disposition: floor
--- NOTE | 2016-10-09 17:10 | Event Note ---
Date: 10/09/16 Plan to evaluate patient after notification of possible consult received at the office. The patient had pneumothorax on the move to IR for chest tube placement. Talk to his parents. We'll see after procedure possible if not will follow up in a.m. Also agree with surgery consult for additional follow- up.
[2016-10-09] MEDS: DILAUDID IV PRN (18:54)
[2016-10-09] MEDS: PERCOCET 5/325 PO PRN (20:34)
[2016-10-10] MEDS: DILAUDID IV PRN ×4 (02:30→14:21)
[2016-10-10] MEDS: HEPARIN SUB-Q SCH ×2 (05:26→14:23)
--- NOTE | 2016-10-10 07:19 | Event Note ---
Date: 10/10/16 Pt seen and examined, breathing comfortably, ThanK You Dr. Temple, continue CT to suction x 48 hours , then trial of water seal, I spoke with patient and his Mom and Dad, CT appears patent , no air leak in pleurovac.
--- NOTE | 2016-10-10 08:10 | XRay Report ---
X-RAY AP CHEST :10/10/16 07:31 CLINICAL: Follow-up after chest tube placement. COMPARISON:10/09/16 12:44 FINDINGS: An anterior chest tube has been placed since the prior exam and the left lung has reexpanded. Small left apical pneumothorax.The lungs are otherwise unchanged. Normal heart and pulmonary vessels. IMPRESSION: A small left apical pneumothorax with a left chest tube. Continued bilateral interstitial and alveolar lung opacities.
[2016-10-10] MEDS: THERAGRAN-M Tab PO SCH (09:27)
[2016-10-10] MEDS: PEPCID PO SCH (09:27)
[2016-10-10] MEDS: D5W/0.45% NACL/KCL 20 MEQ 20 MEQ/1,000 ML BAG IV SCH ×2 (09:27→23:12)
[2016-10-10] MEDS: PERCOCET 5/325 PO PRN (10:45)
[2016-10-10] MEDS ORDERED: PROVENTIL IH PRN ×2 (14:43→14:46)
--- NOTE | 2016-10-10 16:02 | Cat Scan Report ---
EXAM: CT guided 10 Fr left chest tube placement CLINICAL INDICATION: Symptomatic large left pneumothorax DATE: 10/09/16 STYRENE DEHYDRATION REACTOR OPERATOR: LUBA JEROME MD MEDICATIONS: Conscious sedation using Versed and fentanyl was performed under guidance of radiologic nursing. Continuous cardiopulmonary monitoring was utilized. PROCEDURE: Following an explanation of the risks, benefits and alternatives; written informed consent was obtained. The patient was brought to the CT suite and placed in the supine position on the CT table. Manager CT was performed of the chest. After determining the appropriate site, the skin was infiltrated with lidocaine and a finder needle was placed. Intermittent CT was performed until the desired position was identified. The 18 gauge trocar needle was inserted into the left pneumothorax . Aspiration was performed and gas was aspirated. J wire was then advanced through the needle and into the pneumothorax. The needle was exchanged for multiple dilators that were used to serially dilate over the wire. A 10 Fr APD drain was advanced over the wire and metal stiffener. The metal stiffener and wire were removed. With a 60 cc syringe, the air was removed from the left chest. Final CT scanning was performed. The pigtail was secured and connected to Pleuevac with suction. Sterile bandage was applied. The catheter was secured with two, 3-0 ethilon sutures. The patient tolerated the procedure well. There were no immediate postprocedural complications. FINDINGS: 1. Initial CT demonstrates large left pneumothorax. There is a satisfactory window for CT guided chest tube placement. 2. Intermittent CT demonstrates the 18 gauge needle was placed in the left pneumothorax. 3. Wire is coiled in the left pneumothorax. 4. Final CT documents placement of a 10 Fr drain in the left pleural space with complete aspiration of the pneumothorax. IMPRESSION: Successful CT guided 10 Fr left chest tube placement in a left pneumothorax with resolution of pneumothorax and symptoms.
--- NOTE | 2016-10-10 17:26 | Consultation ---
History of Present Illness Consult date: 10/10/16 Reason for consult: pneumothorax, abnormal CXR/CT History of present illness: Culture for evaluated yesterday case of a 46-year-old male, who underwent CT- guided needle biopsy of a reportedly in left lung mass. The patient is interviewed after procedure and and now he has chest tube placed in. He reports history of progressive shortness of breath associated with coughing episodes. This has been noted for the past 4 months. Expectoration appears to be minimal. He noticed being short of breath doing his regular job and this became progressively worse in recent months. He denies chest pain, fever lower extremity swelling. He denies any wheezing. 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 Denies chronic mole exposure although he reports some of the truck that he drives have moldy smell. No relevant family history her lung disease. He denies any rash or lymphadenopathy. Patient jogs and exercises regularly and he is a lifelong nonsmoker. On presentation, his x-rays show extensive interstitial changes. CTA showed evidence of extensive reticulonodular changes on mid lungs with a more prominent nodular density on the left side. Additional laboratory data showed evidence of persistent hypercalcemia. He underwent biopsy with postprocedural pneumothorax on the left side. We are called to evaluate the patient. Lung biopsy is reported as consistent with non caseating granulomas. AFB, GMS and fungi stains are negative. Biopsy reported as negative for malignancy. Medications and Allergies Allergies Allergy/AdvReac Type Severity Reaction Status Date / Time cefaclor [From [facility]] Allergy Itching Unverified 10/06/16 08:31 Home Medications Medication Instructions Recorded Confirmed Last Taken Type Rcvjk-Huhmmyx-Jgmygmby Tablet 1 tab PO DAILY 10/07/16 10/07/16 10/06/16 History Active Meds: Active Medications Acetaminophen (Tylenol) 650 mg PO Q4H PRN PRN Reason: Pain MILD(1-3)/Fever >100.5/CASTELLANOS Albuterol (Proventil) 2.5 mg IH Q4HRT PRN PRN Reason: Shortness Of Breath Bisacodyl (Dulcolax) 10 mg TX QDAY PRN PRN Reason: Constipation unrelieved by MOM Famotidine (Pepcid) 20 mg PO BID REAGAN Last Admin: 10/10/16 09:27 Dose: 20 mg Heparin Sodium (Porcine) (Heparin) 5,000 unit SUB-Q Q8HR [facility] Last Admin: 10/10/16 14:23 Dose: 5,000 unit Hydromorphone HCl (Dilaudid) 1 mg IV Q6H PRN PRN Reason: Pain , Severe (7-10) Last Admin: 10/10/16 14:21 Dose: 1 mg Potassium Chloride/Dextrose/Sod Cl (D5w/0.45% Nacl/Kcl 20 Meq) 20 meq in 1,000 mls @ 75 mls/hr IV DIRECT REAGAN Last Admin: 10/10/16 09:27 Dose: 75 mls/hr Magnesium Hydroxide (Milk Of Magnesia) 30 ml PO Q4H PRN PRN Reason: Constipation Multivitamins/Minerals (Theragran-M Tab) 1 each PO QDAY [facility] Last Admin: 10/10/16 09:27 Dose: 1 each Ondansetron HCl (Zofran) 4 mg IV Q8H PRN PRN Reason: N/V unrelieved by Reglan Oxycodone/Acetaminophen (Percocet 5/325) 1 tab PO Q6H PRN PRN Reason: Pain, Moderate (4-6) Last Admin: 10/10/16 10:45 Dose: 1 tab Review of Systems Constitutional: fatigue, weakness, no fever, no chills, no sweats, no night sweats Ears, nose, mouth and throat: no headache, no vertigo, no pain front of neck Cardiovascular: shortness of breath, dyspnea on exertion, no chest pain, no orthopnea, no palpitations, no high blood pressure, no leg edema Respiratory: cough, shortness of breath, dyspnea on exertion, no cough with sputum, no excessive sputum, no hemoptysis, no wheezing, no pleurisy, no pain, no sleep apnea, no respiratory infections Gastrointestinal: constipation, no abdominal pain, no nausea, no vomiting, no diarrhea Integumentary: no rash Neurological: weakness, no head injury, no transient paralysis, no paralysis, no parathesias, no numbness, no tingling, no seizures Hematologic/Lymphatic: no easy bruising, no easy bleeding, no lymphadenopathy, no lymphedema, no thrombophilia Allergic/Immunologic: gluten intolerance Physical Examination Vital signs: Vital Signs Temp Pulse Resp BP Pulse Ox 97.4 F L 77 18 138/98 96 10/07/16 08:31 10/07/16 08:31 10/07/16 08:31 10/07/16 08:31 10/07/16 08:31 General appearance: no acute distress Eyes: non-icteric ENT: oropharynx moist Neck: supple, no lymphadenopathy, no JVD Effort: normal Ascultation: Left: other (chest tube to waterseal drainage from left. No air leaks), Bilateral: clear Gastrointestinal: normoactive bowel sounds, non-distended Integumentary: normal Extremities: no cyanosis, no edema Musculoskeletal: no deformities normal mental status, non-focal exam, CN II-XII normal, motor strength normal and mood appropriate, affect normal Results - Laboratory Findings CBC and BMP: 10/09/16 04:04 10/09/16 04:04 PT/INR, D-dimer PT 14.7 Sec. (12.2-14.9) 10/09/16 04:04 INR 1.09 (0.87-1.13) 10/09/16 04:04 Abnormal lab findings: Abnormal Labs 10/08/16 10/09/16 10/09/16 07:27 04:04 04:04 WBC 4.1 L MCV 83 L Lymphocytes % (Manual) 13.0 L Monocytes % (Manual) 19.0 H Eosinophils % (Manual) 5.0 H Lymphocytes # (Manual) 0.5 L APTT 37.1 H Calcium 11.5 H - Diagnostic Findings Chest x-ray: report reviewed, image reviewed CT scan - chest: report reviewed, image reviewed Assessment and Plan Interstitial lung disease. 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 Postprocedural left pneumothorax. Lung reexpanded on x-ray. It to be improving Hypercalcemia. Most likely part of the sarcoidosis . Need to be monitored , treated patient already with constipation Recommendations Recommend to continue with normal saline at 75-125 mL per hour Monitor calcium level daily PTH level Urinary calcium Monitor renal function and consider nephrology consult if significant hypercalciuria or renal dysfunction noted. Initiate prednisone 40 mg/kg daily PPD Angiotensin-converting enzyme level Get copy of the pulmonary function test performed by patient here in this hospital recently Pneumothorax /chest tube therapy been monitored by surgery. Patient will probably Be discharged home after chest tube is removed
[2016-10-10] MEDS: DELTASONE PO SCH (18:23)
--- NOTE | 2016-10-10 18:38 | Progress Note ---
Assessment and Plan Assessment and plan: 46 yo male with no medical problems developed persistent cough approximately 4 months ago and later associated fatigue/generalized weakness 1. Suspected malignancy (metastatic malignancy with lung primary) vs granulomatous disease (sarcoidosis) CT chest showed DASH mass with bilateral infiltrates and mediastinal and hilar adenopathy and CT abdomen/pelvis showing numerous small hypodensities in spleen and liver S/p CT-guided lung biopsy by IR showing no malignant cells, but multiple non caseating granulomas Findings consistently pulmonary sarcoidosis ROSEMARIE pending Pulmonary labor relations consultant 2. Left pneumothorax postbiopsy Placed on O2 100% rebreather mask, then chest tube placed by IR 10/09 CXR today - reexpanded lung 3. Hypercalcemia Secondary to dehydration versus paraneoplastic syndrome vs hypercalcemia in sarcoidosis Most likely hypercalcemia in sarcoidosis; obtain PTH and urine calcium AP within normal limits 4. Acute kidney injury Possible secondary to vasomotor nephropathy Improving with IV fluids Continue to monitor 5. DVT prophylaxis Heparin subcutaneous; consider switching to Lovenox if renal function normalizes History Interval history: s/p CT-guided lung mass biopsy with L PTX post procedure and s/p chest tube placement; c/o pain Hospitalist Physical - Constitutional Vitals: Temp Pulse Resp BP Pulse Ox 97.9 F 66 18 128/78 100 10/10/16 15:58 10/10/16 15:58 10/10/16 15:58 10/10/16 15:58 10/10/16 14:44 General appearance: Present: mild distress, well-nourished - EENT Eyes: Present: PERRL, EOM intact. Absent: scleral icterus, conjunctival injection - Neck Neck: Absent: supple, normal ROM, masses or JVD - Respiratory Respiratory effort: normal, other (L chest tube to suction) Respiratory: bilateral: diminished, negative: rhonchi, wheezing - Cardiovascular Rhythm: regular Heart Sounds: Present: S1 & S2. Absent: systolic murmur - Extremities Extremities: no ischemia - Abdominal General gastrointestinal: soft, non-tender, non-distended, normal bowel sounds - Integumentary Integumentary: Absent: warm, dry, jaundice, rash - Psychiatric Psychiatric: cooperative - Neurologic Neurologic: CNII-XII intact, no focal deficits Results - Labs CBC & Chem 7: 10/09/16 04:04 10/09/16 04:04 Labs: Laboratory Last Values WBC 4.1 K/mm3 (4.5-11.0) L 10/09/16 04:04 RBC 4.55 M/mm3 (3.65-5.03) 10/09/16 04:04 Hgb 12.6 gm/dl (11.8-15.2) 10/09/16 04:04 Hct 37.8 % (35.5-45.6) 10/09/16 04:04 MCV 83 fl (84-94) L 10/09/16 04:04 MCH 28 pg (28-32) 10/09/16 04:04 MCHC 34 % (32-34) 10/09/16 04:04 RDW 14.4 % (13.2-15.2) 10/09/16 04:04 Plt Count 159 K/mm3 (140-440) 10/09/16 04:04 Lymph % (Auto) 14.1 % (13.4-35.0) 10/07/16 09:39 [place] % (Auto) [employer] 10/09/16 04:04 Eos % (Auto) 6.0 % (0.0-4.3) H 10/07/16 09:39 Baso % (Auto) 1.1 % (0.0-1.8) 10/07/16 09:39 Lymph # 0.9 K/mm3 (1.2-5.4) L 10/07/16 09:39 [place] # 1.0 K/mm3 (0.0-0.8) H 10/07/16 09:39 Eos # 0.4 K/mm3 (0.0-0.4) 10/07/16 09:39 Baso # 0.1 K/mm3 (0.0-0.1) 10/07/16 09:39 Add Manual Diff Complete 10/09/16 04:04 Total Counted 100 10/09/16 04:04 Seg Neutrophils % 63.2 % (40.0-70.0) 10/07/16 09:39 Seg Neuts % (Manual) 58.0 % (40.0-70.0) 10/09/16 04:04 Band Neutrophils % 5.0 % 10/09/16 04:04 Lymphocytes % (Manual) 13.0 % (13.4-35.0) L 10/09/16 04:04 Reactive Lymphs % (Man) 0 % 10/09/16 04:04 Monocytes % (Manual) 19.0 % (0.0-7.3) H 10/09/16 04:04 Eosinophils % (Manual) 5.0 % (0.0-4.3) H 10/09/16 04:04 Basophils % (Manual) 0 % (0.0-1.8) 10/09/16 04:04 Metamyelocytes % 0 % 10/09/16 04:04 Myelocytes % 0 % 10/09/16 04:04 Promyelocytes % 0 % 10/09/16 04:04 Blast Cells % 0 % 10/09/16 04:04 Nucleated RBC % Not Reportable 10/09/16 04:04 Seg Neutrophils # 4.1 K/mm3 (1.8-7.7) 10/07/16 09:39 Seg Neutrophils # Man 2.4 K/mm3 (1.8-7.7) 10/09/16 04:04 Band Neutrophils # 0.2 K/mm3 10/09/16 04:04 Lymphocytes # (Manual) 0.5 K/mm3 (1.2-5.4) L 10/09/16 04:04 Abs React Lymphs (Man) 0.0 K/mm3 10/09/16 04:04 Monocytes # (Manual) 0.8 K/mm3 (0.0-0.8) 10/09/16 04:04 Eosinophils # (Manual) 0.2 K/mm3 (0.0-0.4) 10/09/16 04:04 Basophils # (Manual) 0.0 K/mm3 (0.0-0.1) 10/09/16 04:04 Metamyelocytes # 0.0 K/mm3 10/09/16 04:04 Myelocytes # 0.0 K/mm3 10/09/16 04:04 Promyelocytes # 0.0 K/mm3 10/09/16 04:04 Blast Cells # 0.0 K/mm3 10/09/16 04:04 WBC Morphology Not Reportable 10/09/16 04:04 Hypersegmented Neuts Not Reportable 10/09/16 04:04 Hyposegmented Neuts Not Reportable 10/09/16 04:04 Hypogranular Neuts Not Reportable 10/09/16 04:04 Smudge Cells Not Reportable 10/09/16 04:04 Toxic Granulation Not Reportable 10/09/16 04:04 Toxic Vacuolation Not Reportable 10/09/16 04:04 Dohle Bodies Not Reportable 10/09/16 04:04 Pelger-Huet Anomaly Not Reportable 10/09/16 04:04 Davey Rods Not Reportable 10/09/16 04:04 Platelet Estimate Appears normal 10/09/16 04:04 Clumped Platelets Not Reportable 10/09/16 04:04 Plt Clumps, EDTA Not Reportable 10/09/16 04:04 Large Platelets Few 10/09/16 04:04 Giant Platelets Not Reportable 10/09/16 04:04 Platelet Satelliting Not Reportable 10/09/16 04:04 Plt Morphology Comment Not Reportable 10/09/16 04:04 RBC Morphology Not Reportable 10/09/16 04:04 Dimorphic RBCs Not Reportable 10/09/16 04:04 Polychromasia Not Reportable 10/09/16 04:04 Hypochromasia Rare 10/09/16 04:04 Poikilocytosis Not Reportable 10/09/16 04:04 Anisocytosis 1+ 10/09/16 04:04 Microcytosis Not Reportable 10/09/16 04:04 Macrocytosis Not Reportable 10/09/16 04:04 Spherocytes Not Reportable 10/09/16 04:04 Pappenheimer Bodies Not Reportable 10/09/16 04:04 Sickle Cells Not Reportable 10/09/16 04:04 Target Cells Not Reportable 10/09/16 04:04 Tear Drop Cells Not Reportable 10/09/16 04:04 Ovalocytes Not Reportable 10/09/16 04:04 Helmet Cells Not Reportable 10/09/16 04:04 [place] Bodies Not Reportable 10/09/16 04:04 [place] Rings Not Reportable 10/09/16 04:04 Prashant Cells Not Reportable 10/09/16 04:04 Bite Cells Not Reportable 10/09/16 04:04 Crenated Cell Not Reportable 10/09/16 04:04 Elliptocytes Not Reportable 10/09/16 04:04 Acanthocytes (Spur) Not Reportable 10/09/16 04:04 Rouleaux Not Reportable 10/09/16 04:04 Hemoglobin C Crystals Not Reportable 10/09/16 04:04 Schistocytes Not Reportable 10/09/16 04:04 Malaria parasites Not Reportable 10/09/16 04:04 Dimas Bodies Not Reportable 10/09/16 04:04 Hem Pathologist Commnt No 10/09/16 04:04 PT 14.7 Sec. (12.2-14.9) 10/09/16 04:04 INR 1.09 (0.87-1.13) 10/09/16 04:04 APTT 32.9 Sec. (24.2-36.6) 10/09/16 04:04 Sodium 143 mmol/L (137-145) 10/09/16 04:04 Potassium 4.9 mmol/L (3.6-5.0) D 10/09/16 04:04 Chloride 104.4 mmol/L (98-107) 10/09/16 04:04 Carbon Dioxide 28 mmol/L (22-30) 10/09/16 04:04 Anion Gap 16 mmol/L 10/09/16 04:04 BUN 15 mg/dL (9-20) 10/09/16 04:04 Creatinine 1.3 mg/dL (0.8-1.5) 10/09/16 04:04 Estimated GFR 60 ml/min 10/09/16 04:04 BUN/Creatinine Ratio 11.53 % 10/09/16 04:04 Glucose 90 mg/dL (75-100) 10/09/16 04:04 Lactic Acid 1.60 mmol/L (0.7-2.0) 10/07/16 09:39 Calcium 11.5 mg/dL (8.4-10.2) H 10/09/16 04:04 Phosphorus 3.30 mg/dL (2.5-4.5) 10/09/16 04:04 Magnesium 2.00 mg/dL (1.7-2.3) 10/09/16 04:04 Total Bilirubin 0.50 mg/dL (0.1-1.2) 10/09/16 04:04 AST 17 units/L (5-40) 10/09/16 04:04 ALT 13 units/L (7-56) 10/09/16 04:04 Alkaline Phosphatase 69 units/L (35-129) 10/09/16 04:04 Total Protein 6.8 g/dL (6.3-8.2) 10/09/16 04:04 Albumin 4.0 g/dL (3.9-5) 10/09/16 04:04 Albumin/Globulin Ratio 1.4 % 10/09/16 04:04 HIV 1&2 Antibody Rapid Non react (Non React) 10/08/16 07:21 HIV P24 Antigen Non react (Non React) 10/08/16 07:21
[2016-10-11] MEDS: PEPCID PO SCH ×3 (00:47→22:10)
[2016-10-11] MEDS: HEPARIN SUB-Q SCH ×4 (00:48→22:10)
[2016-10-11] MEDS: DILAUDID IV PRN ×2 (04:55→12:13)
[2016-10-11] MEDS: DELTASONE PO SCH (09:27)
[2016-10-11] MEDS: THERAGRAN-M Tab PO SCH (09:28)
--- NOTE | 2016-10-11 10:29 | Event Note ---
Date: 10/11/16 VSS AF path findings noted, breathing comfortably, no chest pain, continue CT to suction x 36 hours then trail of water seal.
--- NOTE | 2016-10-11 10:43 | Progress Note ---
Assessment and Plan - Patient Problems (1) Sarcoid Current Visit: Yes Status: Acute (2) Bronchitis Current Visit: Yes Status: Acute (3) Lung mass Current Visit: Yes Status: Acute Subjective Interval history: pt awake, family at bedside Objective Vital Signs - 12hr 10/10/16 10/11/16 10/11/16 23:00 04:55 09:36 Temperature 97.8 F Pulse Rate 52 L Respiratory 18 20 Rate Blood Pressure 114/67 O2 Sat by Pulse 97 97 Oximetry Constitutional: no acute distress Eyes: non-icteric ENT: oropharynx moist Neck: supple, no lymphadenopathy, no JVD Effort: normal Ascultation: Left: other (chest tube to waterseal drainage from left. No air leaks), Bilateral: clear Gastrointestinal: normoactive bowel sounds, non-distended Integumentary: normal Extremities: no cyanosis, no edema Neurologic: normal mental status, non-focal exam, CN II-XII normal, motor strength normal and Psychiatric: mood appropriate, affect normal CBC and BMP: 10/09/16 04:04 10/09/16 04:04 ABG, PT/INR, D-dimer: PT/INR, D-dimer PT 14.7 Sec. (12.2-14.9) 10/09/16 04:04 INR 1.09 (0.87-1.13) 10/09/16 04:04 Abnormal lab findings: Abnormal Labs 10/08/16 10/09/16 10/09/16 07:27 04:04 04:04 WBC 4.1 L MCV 83 L Lymphocytes % (Manual) 13.0 L Monocytes % (Manual) 19.0 H Eosinophils % (Manual) 5.0 H Lymphocytes # (Manual) 0.5 L APTT 37.1 H Calcium 11.5 H PTH Intact 10/10/16 10/11/16 19:42 05:49 WBC MCV Lymphocytes % (Manual) Monocytes % (Manual) Eosinophils % (Manual) Lymphocytes # (Manual) APTT Calcium 10.5 H PTH Intact 10.02 L
[2016-10-11] MEDS: MILK OF MAGNESIA PO PRN (11:07)
--- NOTE | 2016-10-11 11:42 | Hem/Onc Progress Note ---
Assessment and Plan Pathology negative for malignancy. We will sign off. Please call if needed. Discussed with patient and mother. Also discussed with Dr. Dasilva Subjective Date of service: 10/11/16 Interval history: Patient feels fair. Chest tube still in. Pathology negative for malignancy. Possible sarcoid. Objective - Constitutional Vitals: Last Vital Signs Temp 98.6 F 10/11/16 07:25 Pulse 53 L 10/11/16 07:25 Resp 15 10/11/16 07:25 BP 108/61 10/11/16 07:25 Pulse Ox 97 10/11/16 09:36 Pain Intensity (0-10): denies any pain General appearance: no acute distress Performance status: 2- selfcare, ambulatory - Respiratory Respiratory: bilateral: diminished (chest tube present) - Labs Lab Results: Laboratory Results - last 24 hr 10/10/16 10/11/16 19:42 05:49 Calcium 10.5 H PTH Intact 10.02 L
[2016-10-11] MEDS: D5W/0.45% NACL/KCL 20 MEQ 20 MEQ/1,000 ML BAG IV SCH (12:15)
[2016-10-11] MEDS: PERCOCET 5/325 PO PRN (15:37)
--- NOTE | 2016-10-11 19:06 | Progress Note ---
Assessment and Plan Assessment and plan: 46 yo male with no medical problems developed persistent cough approximately 4 months ago and later associated fatigue/generalized weakness 1. Sarcoidosis Initially malignancy suspected (metastatic malignancy with lung primary) vs granulomatous disease (sarcoidosis) CT chest showed DASH mass with bilateral infiltrates and mediastinal and hilar adenopathy and CT abdomen/pelvis showed numerous small hypodensities in spleen and liver S/p CT-guided lung biopsy by IR showing no malignant cells, but multiple non caseating granulomas Findings consistently pulmonary sarcoidosis ROSEMARIE still pending Started on CS Pulmonary following 2. Left pneumothorax postbiopsy Placed on O2 100% rebreather mask, then chest tube placed by IR 10/09 Surgery following 3. Hypercalcemia Secondary to dehydration versus paraneoplastic syndrome vs hypercalcemia in sarcoidosis Most likely hypercalcemia in sarcoidosis as PTH low AP within normal limits Received ivf initially Trending down 4. Acute kidney injury Possible secondary to vasomotor nephropathy Resolved with IV fluids 5. DVT prophylaxis Heparin subcutaneous History Interval history: s/p CT-guided lung mass biopsy with L PTX post procedure and now s/p chest tube placement; c/o pain Hospitalist Physical - Constitutional Vitals: Temp Pulse Resp BP Pulse Ox 97.6 F 52 L 16 112/71 97 10/11/16 14:25 10/11/16 14:25 10/11/16 14:25 10/11/16 14:25 10/11/16 09:36 General appearance: Present: mild distress, well-nourished - EENT Eyes: Present: PERRL, EOM intact. Absent: scleral icterus, conjunctival injection - Neck Neck: Present: supple, normal ROM. Absent: masses or JVD - Respiratory Respiratory effort: normal, other (L CT) Respiratory: bilateral: CTA, negative: rhonchi, wheezing - Cardiovascular Rhythm: regular Heart Sounds: Present: S1 & S2, systolic murmur - Extremities Extremities: no ischemia - Abdominal General gastrointestinal: soft, non-tender, non-distended, normal bowel sounds - Psychiatric Psychiatric: cooperative - Neurologic Neurologic: CNII-XII intact, no focal deficits Results - Labs CBC & Chem 7: 10/09/16 04:04 10/12/16 05:19 Labs: Laboratory Last Values WBC 4.1 K/mm3 (4.5-11.0) L 10/09/16 04:04 RBC 4.55 M/mm3 (3.65-5.03) 10/09/16 04:04 Hgb 12.6 gm/dl (11.8-15.2) 10/09/16 04:04 Hct 37.8 % (35.5-45.6) 10/09/16 04:04 MCV 83 fl (84-94) L 10/09/16 04:04 MCH 28 pg (28-32) 10/09/16 04:04 MCHC 34 % (32-34) 10/09/16 04:04 RDW 14.4 % (13.2-15.2) 10/09/16 04:04 Plt Count 159 K/mm3 (140-440) 10/09/16 04:04 Lymph % (Auto) 14.1 % (13.4-35.0) 10/07/16 09:39 [place] % (Auto) Header Up 10/09/16 04:04 Eos % (Auto) 6.0 % (0.0-4.3) H 10/07/16 09:39 Baso % (Auto) 1.1 % (0.0-1.8) 10/07/16 09:39 Lymph # 0.9 K/mm3 (1.2-5.4) L 10/07/16 09:39 [place] # 1.0 K/mm3 (0.0-0.8) H 10/07/16 09:39 Eos # 0.4 K/mm3 (0.0-0.4) 10/07/16 09:39 Baso # 0.1 K/mm3 (0.0-0.1) 10/07/16 09:39 Add Manual Diff Complete 10/09/16 04:04 Total Counted 100 10/09/16 04:04 Seg Neutrophils % 63.2 % (40.0-70.0) 10/07/16 09:39 Seg Neuts % (Manual) 58.0 % (40.0-70.0) 10/09/16 04:04 Band Neutrophils % 5.0 % 10/09/16 04:04 Lymphocytes % (Manual) 13.0 % (13.4-35.0) L 10/09/16 04:04 Reactive Lymphs % (Man) 0 % 10/09/16 04:04 Monocytes % (Manual) 19.0 % (0.0-7.3) H 10/09/16 04:04 Eosinophils % (Manual) 5.0 % (0.0-4.3) H 10/09/16 04:04 Basophils % (Manual) 0 % (0.0-1.8) 10/09/16 04:04 Metamyelocytes % 0 % 10/09/16 04:04 Myelocytes % 0 % 10/09/16 04:04 Promyelocytes % 0 % 10/09/16 04:04 Blast Cells % 0 % 10/09/16 04:04 Nucleated RBC % Not Reportable 10/09/16 04:04 Seg Neutrophils # 4.1 K/mm3 (1.8-7.7) 10/07/16 09:39 Seg Neutrophils # Man 2.4 K/mm3 (1.8-7.7) 10/09/16 04:04 Band Neutrophils # 0.2 K/mm3 10/09/16 04:04 Lymphocytes # (Manual) 0.5 K/mm3 (1.2-5.4) L 10/09/16 04:04 Abs React Lymphs (Man) 0.0 K/mm3 10/09/16 04:04 Monocytes # (Manual) 0.8 K/mm3 (0.0-0.8) 10/09/16 04:04 Eosinophils # (Manual) 0.2 K/mm3 (0.0-0.4) 10/09/16 04:04 Basophils # (Manual) 0.0 K/mm3 (0.0-0.1) 10/09/16 04:04 Metamyelocytes # 0.0 K/mm3 10/09/16 04:04 Myelocytes # 0.0 K/mm3 10/09/16 04:04 Promyelocytes # 0.0 K/mm3 10/09/16 04:04 Blast Cells # 0.0 K/mm3 10/09/16 04:04 WBC Morphology Not Reportable 10/09/16 04:04 Hypersegmented Neuts Not Reportable 10/09/16 04:04 Hyposegmented Neuts Not Reportable 10/09/16 04:04 Hypogranular Neuts Not Reportable 10/09/16 04:04 Smudge Cells Not Reportable 10/09/16 04:04 Toxic Granulation Not Reportable 10/09/16 04:04 Toxic Vacuolation Not Reportable 10/09/16 04:04 Dohle Bodies Not Reportable 10/09/16 04:04 Pelger-Huet Anomaly Not Reportable 10/09/16 04:04 Davey Rods Not Reportable 10/09/16 04:04 Platelet Estimate Appears normal 10/09/16 04:04 Clumped Platelets Not Reportable 10/09/16 04:04 Plt Clumps, EDTA Not Reportable 10/09/16 04:04 Large Platelets Few 10/09/16 04:04 Giant Platelets Not Reportable 10/09/16 04:04 Platelet Satelliting Not Reportable 10/09/16 04:04 Plt Morphology Comment Not Reportable 10/09/16 04:04 RBC Morphology Not Reportable 10/09/16 04:04 Dimorphic RBCs Not Reportable 10/09/16 04:04 Polychromasia Not Reportable 10/09/16 04:04 Hypochromasia Rare 10/09/16 04:04 Poikilocytosis Not Reportable 10/09/16 04:04 Anisocytosis 1+ 10/09/16 04:04 Microcytosis Not Reportable 10/09/16 04:04 Macrocytosis Not Reportable 10/09/16 04:04 Spherocytes Not Reportable 10/09/16 04:04 Pappenheimer Bodies Not Reportable 10/09/16 04:04 Sickle Cells Not Reportable 10/09/16 04:04 Target Cells Not Reportable 10/09/16 04:04 Tear Drop Cells Not Reportable 10/09/16 04:04 Ovalocytes Not Reportable 10/09/16 04:04 Helmet Cells Not Reportable 10/09/16 04:04 [place] Bodies Not Reportable 10/09/16 04:04 [place] Rings Not Reportable 10/09/16 04:04 Prashant Cells Not Reportable 10/09/16 04:04 Bite Cells Not Reportable 10/09/16 04:04 Crenated Cell Not Reportable 10/09/16 04:04 Elliptocytes Not Reportable 10/09/16 04:04 Acanthocytes (Spur) Not Reportable 10/09/16 04:04 Rouleaux Not Reportable 10/09/16 04:04 Hemoglobin C Crystals Not Reportable 10/09/16 04:04 Schistocytes Not Reportable 10/09/16 04:04 Malaria parasites Not Reportable 10/09/16 04:04 Dimas Bodies Not Reportable 10/09/16 04:04 Hem Pathologist Commnt No 10/09/16 04:04 PT 14.7 Sec. (12.2-14.9) 10/09/16 04:04 INR 1.09 (0.87-1.13) 10/09/16 04:04 APTT 32.9 Sec. (24.2-36.6) 10/09/16 04:04 Sodium 143 mmol/L (137-145) 10/09/16 04:04 Potassium 4.9 mmol/L (3.6-5.0) D 10/09/16 04:04 Chloride 104.4 mmol/L (98-107) 10/09/16 04:04 Carbon Dioxide 28 mmol/L (22-30) 10/09/16 04:04 Anion Gap 16 mmol/L 10/09/16 04:04 BUN 15 mg/dL (9-20) 10/09/16 04:04 Creatinine 1.3 mg/dL (0.8-1.5) 10/09/16 04:04 Estimated GFR 60 ml/min 10/09/16 04:04 BUN/Creatinine Ratio 11.53 % 10/09/16 04:04 Glucose 90 mg/dL (75-100) 10/09/16 04:04 Lactic Acid 1.60 mmol/L (0.7-2.0) 10/07/16 09:39 Calcium 10.5 mg/dL (8.4-10.2) H 10/11/16 05:49 Phosphorus 3.30 mg/dL (2.5-4.5) 10/09/16 04:04 Magnesium 2.00 mg/dL (1.7-2.3) 10/09/16 04:04 Total Bilirubin 0.50 mg/dL (0.1-1.2) 10/09/16 04:04 AST 17 units/L (5-40) 10/09/16 04:04 ALT 13 units/L (7-56) 10/09/16 04:04 Alkaline Phosphatase 69 units/L (35-129) 10/09/16 04:04 Total Protein 6.8 g/dL (6.3-8.2) 10/09/16 04:04 Albumin 4.0 g/dL (3.9-5) 10/09/16 04:04 Albumin/Globulin Ratio 1.4 % 10/09/16 04:04 PTH Intact 10.02 pg/mL (15-65) L 10/10/16 19:42 HIV 1&2 Antibody Rapid Non react (Non React) 10/08/16 07:21 HIV P24 Antigen Non react (Non React) 10/08/16 07:21
[2016-10-12] MEDS: D5W/0.45% NACL/KCL 20 MEQ 20 MEQ/1,000 ML BAG IV SCH ×2 (01:06→12:36)
[2016-10-12] MEDS: DILAUDID IV PRN ×3 (01:16→20:07)
[2016-10-12] MEDS: HEPARIN SUB-Q SCH ×3 (06:00→21:40)
[2016-10-12] MEDS: PERCOCET 5/325 PO PRN ×2 (06:07→15:37)
[2016-10-12 06:26] LABS: Anion Gap 15 mmol/L; Blood Urea Nitrogen 18 mg/dL (9-20); Calcium 10.4 mg/dL (8.4-10.2); Carbon Dioxide 25 mmol/L (22-30); Chloride 106.3 mmol/L (98-107); Glucose 99 mg/dL (75-100); Potassium 4.3 mmol/L (3.6-5.0); Sodium 142 mmol/L (137-145)
[2016-10-12] MEDS: PEPCID PO SCH ×2 (10:01→21:41)
[2016-10-12] MEDS: DELTASONE PO SCH (10:01)
[2016-10-12] MEDS: MILK OF MAGNESIA PO PRN (10:03)
--- NOTE | 2016-10-12 10:43 | Progress Note ---
Assessment and Plan - Patient Problems (1) Sarcoid Current Visit: Yes Status: Acute (2) Bronchitis Current Visit: Yes Status: Acute (3) Lung mass Current Visit: Yes Status: Acute Subjective Interval history: no sob, pleurisy reported Objective Vital Signs - 12hr 10/12/16 10/12/16 00:10 07:40 Temperature 97.8 F 97.4 F L Pulse Rate 50 L 52 L Respiratory 16 16 Rate Blood Pressure 116/72 140/76 O2 Sat by Pulse 99 97 Oximetry Constitutional: no acute distress Eyes: non-icteric ENT: oropharynx moist Neck: supple, no lymphadenopathy, no JVD Effort: normal Ascultation: Left: other (chest tube to waterseal drainage from left. No air leaks), Bilateral: clear Gastrointestinal: normoactive bowel sounds, non-distended Integumentary: normal Extremities: no cyanosis, no edema Neurologic: normal mental status, non-focal exam, CN II-XII normal, motor strength normal and Psychiatric: mood appropriate, affect normal CBC and BMP: 10/09/16 04:04 10/12/16 05:19 ABG, PT/INR, D-dimer: PT/INR, D-dimer PT 14.7 Sec. (12.2-14.9) 10/09/16 04:04 INR 1.09 (0.87-1.13) 10/09/16 04:04 Abnormal lab findings: Abnormal Labs 10/08/16 10/09/16 10/09/16 07:27 04:04 04:04 WBC 4.1 L MCV 83 L Lymphocytes % (Manual) 13.0 L Monocytes % (Manual) 19.0 H Eosinophils % (Manual) 5.0 H Lymphocytes # (Manual) 0.5 L APTT 37.1 H Calcium 11.5 H PTH Intact 10/10/16 10/11/16 10/12/16 19:42 05:49 05:19 WBC MCV Lymphocytes % (Manual) Monocytes % (Manual) Eosinophils % (Manual) Lymphocytes # (Manual) APTT Calcium 10.5 H 10.4 H PTH Intact 10.02 L
--- NOTE | 2016-10-12 15:10 | Progress Note ---
Assessment and Plan Assessment and plan: 46 yo male with no medical problems developed persistent cough approximately 4 months ago and later associated fatigue/generalized weakness 1. Sarcoidosis Initially malignancy suspected (metastatic malignancy with lung primary) vs granulomatous disease (sarcoidosis) CT chest showed DASH mass with bilateral infiltrates and mediastinal and hilar adenopathy and CT abdomen/pelvis showed numerous small hypodensities in spleen and liver S/p CT-guided lung biopsy by IR showing no malignant cells, but multiple non caseating granulomas Findings consistent with pulmonary sarcoidosis ROSEMARIE still pending Started on CS Pulmonary following 2. Left pneumothorax postbiopsy Placed on O2 100% rebreather mask, then chest tube placed by IR 10/09 Surgery following 3. Hypercalcemia Secondary to dehydration versus paraneoplastic syndrome vs hypercalcemia in sarcoidosis Most likely hypercalcemia in sarcoidosis as PTH low AP within normal limits Received ivf initially Trending down 4. Acute kidney injury Possible secondary to vasomotor nephropathy Resolved with IV fluids 5. DVT prophylaxis Heparin subcutaneous History Interval history: s/p CT-guided lung mass biopsy with L PTX post procedure and now s/p chest tube placement; pain better controlled now Hospitalist Physical - Constitutional Vitals: Temp Pulse Resp BP Pulse Ox 97.4 F L 52 L 16 140/76 97 10/12/16 07:40 10/12/16 07:40 10/12/16 07:40 10/12/16 07:40 10/12/16 07:40 General appearance: Present: no acute distress, well-nourished - EENT Eyes: Present: PERRL, EOM intact. Absent: scleral icterus, conjunctival injection - Neck Neck: Present: supple, normal ROM. Absent: masses or JVD - Respiratory Respiratory effort: normal Respiratory: bilateral: CTA, negative: rhonchi, wheezing - Cardiovascular Rhythm: regular Heart Sounds: Present: S1 & S2. Absent: systolic murmur - Extremities Extremities: no ischemia - Abdominal General gastrointestinal: soft, non-tender, non-distended, normal bowel sounds - Psychiatric Psychiatric: cooperative - Neurologic Neurologic: CNII-XII intact, no focal deficits Results - Labs CBC & Chem 7: 10/09/16 04:04 10/12/16 05:19 Labs: Laboratory Last Values WBC 4.1 K/mm3 (4.5-11.0) L 10/09/16 04:04 RBC 4.55 M/mm3 (3.65-5.03) 10/09/16 04:04 Hgb 12.6 gm/dl (11.8-15.2) 10/09/16 04:04 Hct 37.8 % (35.5-45.6) 10/09/16 04:04 MCV 83 fl (84-94) L 10/09/16 04:04 MCH 28 pg (28-32) 10/09/16 04:04 MCHC 34 % (32-34) 10/09/16 04:04 RDW 14.4 % (13.2-15.2) 10/09/16 04:04 Plt Count 159 K/mm3 (140-440) 10/09/16 04:04 Lymph % (Auto) 14.1 % (13.4-35.0) 10/07/16 09:39 [place] % (Auto) Plant And Instrument Engineer 10/09/16 04:04 Eos % (Auto) 6.0 % (0.0-4.3) H 10/07/16 09:39 Baso % (Auto) 1.1 % (0.0-1.8) 10/07/16 09:39 Lymph # 0.9 K/mm3 (1.2-5.4) L 10/07/16 09:39 [place] # 1.0 K/mm3 (0.0-0.8) H 10/07/16 09:39 Eos # 0.4 K/mm3 (0.0-0.4) 10/07/16 09:39 Baso # 0.1 K/mm3 (0.0-0.1) 10/07/16 09:39 Add Manual Diff Complete 10/09/16 04:04 Total Counted 100 10/09/16 04:04 Seg Neutrophils % 63.2 % (40.0-70.0) 10/07/16 09:39 Seg Neuts % (Manual) 58.0 % (40.0-70.0) 10/09/16 04:04 Band Neutrophils % 5.0 % 10/09/16 04:04 Lymphocytes % (Manual) 13.0 % (13.4-35.0) L 10/09/16 04:04 Reactive Lymphs % (Man) 0 % 10/09/16 04:04 Monocytes % (Manual) 19.0 % (0.0-7.3) H 10/09/16 04:04 Eosinophils % (Manual) 5.0 % (0.0-4.3) H 10/09/16 04:04 Basophils % (Manual) 0 % (0.0-1.8) 10/09/16 04:04 Metamyelocytes % 0 % 10/09/16 04:04 Myelocytes % 0 % 10/09/16 04:04 Promyelocytes % 0 % 10/09/16 04:04 Blast Cells % 0 % 10/09/16 04:04 Nucleated RBC % Not Reportable 10/09/16 04:04 Seg Neutrophils # 4.1 K/mm3 (1.8-7.7) 10/07/16 09:39 Seg Neutrophils # Man 2.4 K/mm3 (1.8-7.7) 10/09/16 04:04 Band Neutrophils # 0.2 K/mm3 10/09/16 04:04 Lymphocytes # (Manual) 0.5 K/mm3 (1.2-5.4) L 10/09/16 04:04 Abs React Lymphs (Man) 0.0 K/mm3 10/09/16 04:04 Monocytes # (Manual) 0.8 K/mm3 (0.0-0.8) 10/09/16 04:04 Eosinophils # (Manual) 0.2 K/mm3 (0.0-0.4) 10/09/16 04:04 Basophils # (Manual) 0.0 K/mm3 (0.0-0.1) 10/09/16 04:04 Metamyelocytes # 0.0 K/mm3 10/09/16 04:04 Myelocytes # 0.0 K/mm3 10/09/16 04:04 Promyelocytes # 0.0 K/mm3 10/09/16 04:04 Blast Cells # 0.0 K/mm3 10/09/16 04:04 WBC Morphology Not Reportable 10/09/16 04:04 Hypersegmented Neuts Not Reportable 10/09/16 04:04 Hyposegmented Neuts Not Reportable 10/09/16 04:04 Hypogranular Neuts Not Reportable 10/09/16 04:04 Smudge Cells Not Reportable 10/09/16 04:04 Toxic Granulation Not Reportable 10/09/16 04:04 Toxic Vacuolation Not Reportable 10/09/16 04:04 Dohle Bodies Not Reportable 10/09/16 04:04 Pelger-Huet Anomaly Not Reportable 10/09/16 04:04 Davey Rods Not Reportable 10/09/16 04:04 Platelet Estimate Appears normal 10/09/16 04:04 Clumped Platelets Not Reportable 10/09/16 04:04 Plt Clumps, EDTA Not Reportable 10/09/16 04:04 Large Platelets Few 10/09/16 04:04 Giant Platelets Not Reportable 10/09/16 04:04 Platelet Satelliting Not Reportable 10/09/16 04:04 Plt Morphology Comment Not Reportable 10/09/16 04:04 RBC Morphology Not Reportable 10/09/16 04:04 Dimorphic RBCs Not Reportable 10/09/16 04:04 Polychromasia Not Reportable 10/09/16 04:04 Hypochromasia Rare 10/09/16 04:04 Poikilocytosis Not Reportable 10/09/16 04:04 Anisocytosis 1+ 10/09/16 04:04 Microcytosis Not Reportable 10/09/16 04:04 Macrocytosis Not Reportable 10/09/16 04:04 Spherocytes Not Reportable 10/09/16 04:04 Pappenheimer Bodies Not Reportable 10/09/16 04:04 Sickle Cells Not Reportable 10/09/16 04:04 Target Cells Not Reportable 10/09/16 04:04 Tear Drop Cells Not Reportable 10/09/16 04:04 Ovalocytes Not Reportable 10/09/16 04:04 Helmet Cells Not Reportable 10/09/16 04:04 Limon-Meyers Bodies Not Reportable 10/09/16 04:04 [place] Rings Not Reportable 10/09/16 04:04 Panther Cells Not Reportable 10/09/16 04:04 Bite Cells Not Reportable 10/09/16 04:04 Crenated Cell Not Reportable 10/09/16 04:04 Elliptocytes Not Reportable 10/09/16 04:04 Acanthocytes (Spur) Not Reportable 10/09/16 04:04 Rouleaux Not Reportable 10/09/16 04:04 Hemoglobin C Crystals Not Reportable 10/09/16 04:04 Schistocytes Not Reportable 10/09/16 04:04 Malaria parasites Not Reportable 10/09/16 04:04 Dimas Bodies Not Reportable 10/09/16 04:04 Hem Pathologist Commnt No 10/09/16 04:04 PT 14.7 Sec. (12.2-14.9) 10/09/16 04:04 INR 1.09 (0.87-1.13) 10/09/16 04:04 APTT 32.9 Sec. (24.2-36.6) 10/09/16 04:04 Sodium 142 mmol/L (137-145) 10/12/16 05:19 Potassium 4.3 mmol/L (3.6-5.0) 10/12/16 05:19 Chloride 106.3 mmol/L (98-107) 10/12/16 05:19 Carbon Dioxide 25 mmol/L (22-30) 10/12/16 05:19 Anion Gap 15 mmol/L 10/12/16 05:19 BUN 18 mg/dL (9-20) 10/12/16 05:19 Creatinine 0.9 mg/dL (0.8-1.5) 10/12/16 05:19 Estimated GFR > 60 ml/min 10/12/16 05:19 BUN/Creatinine Ratio 20.00 % 10/12/16 05:19 Glucose 99 mg/dL (75-100) 10/12/16 05:19 Lactic Acid 1.60 mmol/L (0.7-2.0) 10/07/16 09:39 Calcium 10.4 mg/dL (8.4-10.2) H 10/12/16 05:19 Phosphorus 3.30 mg/dL (2.5-4.5) 10/09/16 04:04 Magnesium 2.00 mg/dL (1.7-2.3) 10/09/16 04:04 Total Bilirubin 0.50 mg/dL (0.1-1.2) 10/09/16 04:04 AST 17 units/L (5-40) 10/09/16 04:04 ALT 13 units/L (7-56) 10/09/16 04:04 Alkaline Phosphatase 69 units/L (35-129) 10/09/16 04:04 Total Protein 6.8 g/dL (6.3-8.2) 10/09/16 04:04 Albumin 4.0 g/dL (3.9-5) 10/09/16 04:04 Albumin/Globulin Ratio 1.4 % 10/09/16 04:04 PTH Intact 10.02 pg/mL (15-65) L 10/10/16 19:42 HIV 1&2 Antibody Rapid Non react (Non React) 10/08/16 07:21 HIV P24 Antigen Non react (Non React) 10/08/16 07:21
[2016-10-12 18:04] LABS: Calcium, Urine 25.9 mg/dL (6.8-21.3)
[2016-10-13] MEDS: D5W/0.45% NACL/KCL 20 MEQ 20 MEQ/1,000 ML BAG IV SCH (00:50)
[2016-10-13] MEDS: HEPARIN SUB-Q SCH (05:32)
--- NOTE | 2016-10-13 07:38 | Event Note ---
Date: 10/13/[address], will implement water seal and check CXR-hopefully can get it out today.
[2016-10-13 08:11] VITALS: BP 132/80
--- NOTE | 2016-10-13 08:22 | Event Note ---
Date: 10/13/16 CXR reviewed with Radiology, looks good on water seal, CT d/wally, if repeat CXR OK patient can be discharged from Thoracic standpoint, I will see in my office in one week for suture removal.Needs follow up with Pulmonary to address Sarcoid treatment. Instructed on wound care.
--- NOTE | 2016-10-13 08:48 | XRay Report ---
PORTABLE CHEST INDICATION: Chest tube to waterseal. COMPARISON: 10/10/2016 FINDINGS: Portable, frontal chest radiograph demonstrates smaller, minimal left apical pneumothorax with pleural separation of approximately 6 mm, previously 12 mm at the apex. Small bore left chest tube again noted. Normal cardiomediastinal silhouette. Stable diffuse bilateral pulmonary infiltrates. Intact bones. No significant pleural effusions. CONCLUSION: Minimal, smaller left apical pneumothorax, as described. Otherwise stable. Thank you for the opportunity to participate in this patient's care.
--- NOTE | 2016-10-13 09:07 | XRay Report ---
PORTABLE CHEST INDICATION: Chest tube removal. Sarcoidosis. COMPARISON: 7:54 AM earlier today. FINDINGS: Portable, frontal chest radiograph, 8:35 AM, 10/13/2016 demonstrates interval left chest tube removal with stable minimal left apical pneumothorax with approximately 6 mm pleural separation. No other significant interval change. CONCLUSION: Interval left chest tube removal with stable minimal left apical pneumothorax, as described. Thank you for the opportunity to participate in this patient's care.
[2016-10-13] MEDS: DELTASONE PO SCH (09:15)
[2016-10-13] MEDS: PEPCID PO SCH (09:15)
--- NOTE | 2016-10-13 10:52 | Discharge Summary ---
Providers - Providers Date of Admission: 10/07/16 12:38 Date of discharge: 10/13/16 Attending physician: ATIYA BRISENO 10/08/16 07:07 Consult to Physician [CONS] Routine Consulting Provider: LIYA AMBROSE Reason For Exam: Lung ca with mets Place consult to:: dr. ambrose Notified:: office Phone number called:: Was contact made?: Yes Time called:: 09:37 10/08/16 07:10 Consult to Dietitian/Nutrition [CONS] Routine Physician Instructions: Reason For Exam: Reason for Consult: Diet education 10/09/16 14:41 Consult to Physician [CONS] Routine Consulting Provider: YASMIN DASILVA Reason For Exam: PTX post CT-guided biopsy of DASH mass Place consult to:: Dr. Dasilva Notified:: yes Phone number called:: [phone] Was contact made?: Yes If yes, spoke with:: dr Dasilva Time called:: 15:10 Primary care physician: RACK WORKER Hospitalization Reason for admission: cough, fatique Condition: Stable Pertinent studies: Multiple CXRs CT chest CT abdomen/pelvis Procedures: CT-guided lung biopsy Left chest tube placement and removal Hospital course: 46 yo male with no medical problems developed persistent cough approximately 4 months ago and later associated fatigue/generalized weakness. Imaging tests showed DASH mass weight multiple bilateral infiltrates and multiple hypodensities in spleen and liver. Initially metastatic malignancy was suspected, but additional testing was consistent with sarcoidosis. He underwent lung biopsy that revealed no malignant cells, but noncaseating granulomas. ROSEMARIE is pending at the time of discharge. He developed pneumothorax postbiopsy and had chest tube placed; 72 hours later removed without problems. Started on corticosteroids and discharged with pulmonary follow-up. Discharge diagnoses: 1. Sarcoidosis 2. Left pneumothorax postbiopsy 3. Hypercalcemia in sarcoidosis 4. Acute kidney injury - resolved Disposition: DC- TO HOME OR SELFCARE Time spent for discharge: 35 min Core Measure Documentation - Palliative Care Palliative Care/ Comfort Measures: Not Applicable - Core Measures Any of the following diagnoses?: none Exam - Physical Exam Narrative exam: Seen and examined: - Constitutional Vitals: Temp Pulse Resp BP Pulse Ox 97.9 F 50 L 18 132/80 98 10/13/16 08:00 10/13/16 08:00 10/13/16 08:00 10/13/16 08:00 10/13/16 08:00 General appearance: Present: no acute distress, well-nourished - EENT Eyes: Present: PERRL, EOM intact - Neck Neck: Present: supple, normal ROM. Absent: masses or JVD - Respiratory Respiratory effort: normal Respiratory: bilateral: CTA, negative: rhonchi, wheezing - Cardiovascular Rhythm: regular Heart Sounds: Present: S1 & S2. Absent: systolic murmur - Extremities Extremities: no ischemia - Abdominal General gastrointestinal: Present: soft, non-tender, non-distended, normal bowel sounds - Psychiatric Psychiatric: appropriate mood/affect, intact judgment & insight - Neurologic Neurologic: CNII-XII intact, no focal deficits Plan Activity: advance as tolerated Diet: low cholesterol, low salt Follow up with: PRIMARY CAREMD [Primary Care Provider] - 3-5 Days BETH VALLADARES MD [Staff Physician] - 3 Days LULU FLORES MD [Staff Physician] - 7 Days Prescriptions: oxyCODONE /ACETAMINOPHEN [Percocet 5/325 mg] 1 tab PO Q6H PRN #20 tablet PRN Reason: Pain, Moderate (4-6) predniSONE [Deltasone] 40 mg PO QDAY #60 tablet
--- NOTE | 2016-10-13 12:06 | Progress Note ---
Assessment and Plan 46 y/o male with ptx and sarcoid flare. No objection to discharge. Follow up in the office in 7-10 days with 2 view CXR. Would continue steroids at current dosing and allow us to taper as an outpatient. Subjective Date of service: 10/13/16 Interval history: No acute events. Chest tube removed this am Objective Vital Signs - 12hr 10/13/16 08:00 Temperature 97.9 F Pulse Rate 50 L Respiratory 18 Rate Blood Pressure 132/80 O2 Sat by Pulse 98 Oximetry Constitutional: no acute distress Eyes: non-icteric ENT: oropharynx moist Neck: supple, no lymphadenopathy, no JVD Effort: normal Ascultation: Left: other (chest tube to waterseal drainage from left. No air leaks), Bilateral: clear Gastrointestinal: normoactive bowel sounds, non-distended Integumentary: normal Extremities: no cyanosis, no edema Neurologic: normal mental status, non-focal exam, CN II-XII normal, motor strength normal and Psychiatric: mood appropriate, affect normal CBC and BMP: 10/09/16 04:04 10/12/16 05:19 ABG, PT/INR, D-dimer: PT/INR, D-dimer PT 14.7 Sec. (12.2-14.9) 10/09/16 04:04 INR 1.09 (0.87-1.13) 10/09/16 04:04 Abnormal lab findings: Abnormal Labs 10/08/16 10/09/16 10/09/16 07:27 04:04 04:04 WBC 4.1 L MCV 83 L Lymphocytes % (Manual) 13.0 L Monocytes % (Manual) 19.0 H Eosinophils % (Manual) 5.0 H Lymphocytes # (Manual) 0.5 L APTT 37.1 H Calcium 11.5 H PTH Intact Urine Calcium 10/10/16 10/10/16 10/11/16 16:00 19:42 05:49 WBC MCV Lymphocytes % (Manual) Monocytes % (Manual) Eosinophils % (Manual) Lymphocytes # (Manual) APTT Calcium 10.5 H PTH Intact 10.02 L Urine Calcium 25.9 H 10/12/16 05:19 WBC MCV Lymphocytes % (Manual) Monocytes % (Manual) Eosinophils % (Manual) Lymphocytes # (Manual) APTT Calcium 10.4 H PTH Intact Urine Calcium
== END 2016-10-13 14:38 | disposition home or self-care (01) | DRG 196 ==
LOC: ED 08:27 → 3A 12:38
PROVIDERS: ADMIT Internal Medicine; ATTEND Internal Medicine
PROC: 0BBL3ZX Excision of Left Lung, Percutaneous Approach, Diagnostic (ICD-10-PCS; principal; 2016-10-09)
PROC: 0W9B30Z Drainage of Left Pleural Cavity with Drainage Device, Percutaneous Approach (ICD-10-PCS; 2016-10-09)
PROC: 0WPBX3Z Removal of Infusion Device from Left Pleural Cavity, External Approach (ICD-10-PCS; 2016-10-13)
DX: D86.9 Sarcoidosis, unspecified (principal); N17.0 Acute kidney failure with tubular necrosis; J93.9 Pneumothorax, unspecified; E46 Unspecified protein-calorie malnutrition; J84.9 Interstitial pulmonary disease, unspecified; R91.8 Other nonspecific abnormal finding of lung field; R07.89 Other chest pain; E73.9 Lactose intolerance, unspecified; J20.9 Acute bronchitis, unspecified; E83.52 Hypercalcemia; Z88.8 Allergy status to other drugs, medicaments and biological substances; Z68.21 Body mass index [BMI] 21.0-21.9, adult
CPT/HCPCS: 32551; 36415; 71010; 71260; 74177; 77012; 80048; 80053; 82140; 82164; 82310; 82340; 83735; 83970; 84100; 85007; 85025; 85610; 85730; 87040; 87116; 87806; 88184; 88185; 88305; 88312; 88333; 94760; C1769; J1170; J1644; J1956; J2250; J3010; J7040; J7512; Q9967

== ENCOUNTER 2017-06-22 09:49 | Outpatient (CLI) | payer BC ==
--- NOTE | 2017-06-22 13:49 | Cat Scan Report ---
FINAL REPORT EXAM: CT CHEST WO CON HISTORY: Sarcoidosis TECHNIQUE: CT of chest without IV contrast. Coronal and sagittal reconstructed images provided. PRIORS: CT chest October 07, 2016. FINDINGS: Previously-seen reticular nodular alveolar airspace opacities are overall decreased compared the prior. Significantly less alveolar processes noted. More predominant pattern appears to be scattered reticular nodular opacities with linear densities suggesting areas of scarring and fibrosis. Areas of traction bronchiectasis noted. No centrilobular nodules identified. No honeycombing noted. No pneumothorax. No large consolidation. No effusion. Previously-seen mass or consolidation noted in the left upper lobe is overall decreased compared to the prior. Trachea is prominent. No distinct endobronchial lesion identified. No cavitary lesions. Heterogenous thyroid gland. A distinct nodules not evident; however, nodules are not excluded. Axillary regions are unremarkable. Mediastinal adenopathy is decreased in size compared to the prior. Prominent lymph node in the middle mediastinum measures 19.7 x 17.3 mm and previously measured 23.6 x 21.9 mm. Prominent bilateral hilar lymph nodes are decreased compared to the prior. No enlarge or distinct mass identified. Some calcifications noted within the lymph nodes. Images of the esophagus are unremarkable. No aortic aneurysm or dissection. Major branch arteries are grossly unremarkable for noncontrast CT scan. Main pulmonary artery is unremarkable. Mild cardiomegaly. No pericardial effusion. Coronary artery disease. No suspicious osseous lesions on this limited examination of the skeleton. Metastatic disease better evaluated with bone scan. Degenerative changes are present in the spine. IMPRESSION: Significantly decreased alveolar opacities and residual non reticular nodular opacities in both lungs. Findings are probably consistent with history of sarcoidosis. Coarse prominent areas of linear density may represent developing areas of end-stage fibrosis with traction bronchiectasis. No cavitary lesions. Mildly prominent trachea and identified. Decreased hilar mediastinal adenopathy may also be related.
== END 2017-06-22 09:50 | disposition home or self-care (01) ==
LOC: CT 09:49
PROVIDERS: ATTEND Specialist
DX: D86.9 Sarcoidosis, unspecified (principal); I51.7 Cardiomegaly; I25.10 Atherosclerotic heart disease of native coronary artery without angina pectoris; J47.9 Bronchiectasis, uncomplicated; M47.894 Other spondylosis, thoracic region
CPT/HCPCS: 71250